=== PATIENT | female | born 1990 | race Caucasian/White ===

== ENCOUNTER 2016-12-13 14:47 | Emergency (ER) | payer OTHER ==
[2016-12-13] MEDS ORDERED: SODIUM CHLORIDE 0.9% 1,000 ML IV ONE (15:07)
[2016-12-13] MEDS ORDERED: KETOROLAC 30 MG/ML 1 ML VIAL IVP STA (15:07)
[2016-12-13] MEDS ORDERED: HYDROmorphone 1 MG/ML 1 ML SYRINGE IVP STA (15:07)
[2016-12-13] MEDS ORDERED: ONDANSETRON 4 MG/2 ML VIAL IVP STA (15:07)
--- NOTE | 2016-12-13 15:15 | ED ---
Abdominal Pain HPI - General Chief Complaint: Abdominal Pain Stated Complaint: Abd Pain Time Seen by Provider: 12/13/16 14:53 Source: patient, RN notes reviewed Mode of arrival: ambulatory Limitations: no limitations - History of Present Illness Initial Comments: Patient is a 26-year-old female presents to the emergency room for evaluation of right flank pain. Patient states the pain began about 45 minutes ago. Patient does state she has a history of kidney stones. Patient states this feels like a kidney stone. Patient states she feels like she can't urinate as much. Patient denies any pain or burning during urination or blood in urine. Patient states having 10 out of 10 pain in her right flank area that radiates to her right abdomen. Patient states she is nauseous but denies any vomiting yet. Patient denies headache or dizziness. Patient denies any fevers or chills. Patient denies constipation or diarrhea. Patient states her last menstrual period was in September. Patient does state she had a serum beta-hCG drawn on Thursday and it was negative. Patient denies any chest pain or shortness of breath. Patient denies any recent injuries or trauma to her back/ flank area. - Related Data Previous Rx's Medication Instructions Recorded HYDROcodone/APAP 5-325MG [[place] 1 tab PO Q4HR PRN #15 tab 12/13/16 5-325] Ibuprofen [Motrin] 600 mg PO Q6HR PRN #20 tab 12/13/16 Ondansetron Odt [Zofran Odt] 4 mg PO Q8HR PRN #12 tab 12/13/16 Tamsulosin HCl [Flomax] 0.4 mg PO DAILY 10 Days 12/13/16 Allergies Allergy/AdvReac Type Severity Reaction Status Date / Time doxycycline AdvReac Rash/Hives Verified 12/13/16 15:29 sumatriptan [From Imitrex] AdvReac Unknown Verified 12/13/16 15:29 Review of Systems ROS Statement: Those systems with pertinent positive or pertinent negative responses have been documented in the HPI. ROS Other: All systems not noted in ROS Statement are negative. Past Medical History Additional Past Medical History / Comment(s): KIDNEY STONES History of Any Multi-Drug Resistant Organisms: None Reported Past Surgical History: Cholecystectomy Additional Past Surgical History / Comment(s): D AND C Past Psychological History: No Psychological Hx Reported Smoking Status: Never smoker Past Alcohol Use History: None Reported Past Drug Use History: None Reported General Exam - General Exam Comments Initial Comments: Sitting in exam room, appears uncomfortable secondary to pain, no acute distress. Limitations: no limitations General appearance: alert, in no apparent distress Head exam: Present: atraumatic, normocephalic, normal inspection Eye exam: Present: normal appearance ENT exam: Present: normal exam Neck exam: Present: normal inspection Respiratory exam: Present: normal lung sounds bilaterally. Absent: respiratory distress Cardiovascular Exam: Present: regular rate, normal rhythm, normal heart sounds GI/Abdominal exam: Present: soft, tenderness (RLQ), normal bowel sounds. Absent : distended, guarding, rebound, rigid Extremities exam: Present: normal inspection Back exam: Present: normal inspection, CVA tenderness (R). Absent: CVA tenderness (L), paraspinal tenderness, vertebral tenderness Neurological exam: Present: alert, oriented X3, CN II-XII intact, normal gait Psychiatric exam: Present: normal affect, normal mood Skin exam: Present: warm, dry, intact, normal color. Absent: rash Course Vital Signs 12/13/16 12/13/16 12/13/16 14:49 15:31 16:00 Temperature 99.1 F 98.4 F Pulse Rate 84 66 Respiratory 20 20 16 Rate Blood Pressure 133/93 122/72 O2 Sat by Pulse 99 96 Oximetry - Reevaluation(s) Reevaluation #1: 12/13/16 16:26 Urinalysis significant for hematuria. No signs of infection noted. Patient also likely passing a kidney stone. Patient states symptoms are similar to passing kidney stone in the past. Patient states pain has improved but she still nauseous. Will add on more antinausea medication and see if symptoms improve. Medical Decision Making - Medical Decision Making Patient is a 26-year-old female presents to the emergency room for evaluation of right flank pain. Urine significant for hematuria. Patient most likely passing a kidney stone, especially since patient states this feels similar to passing a kidney stone. Patient states she is feeling better after medications given. Patient states she is ready to be discharged home. Will send patient home medications and advised her to follow-up with urologist on Thursday. Advised patient to return for any worsening symptoms. Patient states she understands everything that was discussed with her. Return parameters discussed. case discussed with Dr. Zaidi. - Lab Data Result diagrams: 12/13/16 15:10 12/13/16 15:10 Lab Results 12/13/16 12/13/16 12/13/16 Range/Units 15:10 15:10 15:10 WBC 11.5 H (3.8-10.6) k/uL RBC 5.13 (3.80-5.40) m/uL Hgb 14.9 (11.4-16.0) gm/dL Hct 43.7 (34.0-46.0) % MCV 85.2 (80.0-100.0) fL MCH 29.0 (25.0-35.0) pg MCHC 34.1 (31.0-37.0) g/dL RDW 12.4 (11.5-15.5) % Plt Count 303 (150-450) k/uL Neutrophils % 66 % Lymphocytes % 23 % Monocytes % 5 % Eosinophils % 4 % Basophils % 1 % Neutrophils # 7.6 (1.3-7.7) k/uL Lymphocytes # 2.6 (1.0-4.8) k/uL Monocytes # 0.6 (0-1.0) k/uL Eosinophils # 0.4 (0-0.7) k/uL Basophils # 0.1 (0-0.2) k/uL Sodium 143 (137-145) mmol/L Potassium 4.3 (3.5-5.1) mmol/L Chloride 108 H (98-107) mmol/L Carbon Dioxide 23 (22-30) mmol/L Anion Gap 12 mmol/L BUN 14 (7-17) mg/dL Creatinine 0.73 (0.52-1.04) mg/dL Est GFR (MDRD) Af Amer >60 (>60 ml/min/1.73 sqM) Est GFR (MDRD) Non-Af >60 (>60 ml/min/1.73 sqM) Glucose 103 H (74-99) mg/dL Calcium 9.9 (8.4-10.2) mg/dL Total Bilirubin 0.4 (0.2-1.3) mg/dL AST 26 (14-36) U/L ALT 43 (9-52) U/L Alkaline Phosphatase 82 (38-126) U/L Total Protein 7.8 (6.3-8.2) g/dL Albumin 4.5 (3.5-5.0) g/dL Urine Color Urine Appearance (Clear) Urine pH (5.0-8.0) Ur Specific [place] (1.001-1.035) Urine Protein (Negative) Urine Glucose (UA) (Negative) Urine Ketones (Negative) Urine Blood (Negative) Urine Nitrate (Negative) Urine Bilirubin (Negative) Urine Urobilinogen (<2.0) mg/dL Ur Leukocyte Esterase (Negative) Urine RBC (0-5) /hpf Urine WBC (0-5) /hpf Ur Squamous Epith Cells (0-4) /hpf Urine Mucus (None) /hpf Urine HCG, Qual Not Detected (Not Detectd) 12/13/16 Range/Units 15:10 WBC (3.8-10.6) k/uL RBC (3.80-5.40) m/uL Hgb (11.4-16.0) gm/dL Hct (34.0-46.0) % MCV (80.0-100.0) fL MCH (25.0-35.0) pg MCHC (31.0-37.0) g/dL RDW (11.5-15.5) % Plt Count (150-450) k/uL Neutrophils % % Lymphocytes % % Monocytes % % Eosinophils % % Basophils % % Neutrophils # (1.3-7.7) k/uL Lymphocytes # (1.0-4.8) k/uL Monocytes # (0-1.0) k/uL Eosinophils # (0-0.7) k/uL Basophils # (0-0.2) k/uL Sodium (137-145) mmol/L Potassium (3.5-5.1) mmol/L Chloride (98-107) mmol/L Carbon Dioxide (22-30) mmol/L Anion Gap mmol/L BUN (7-17) mg/dL Creatinine (0.52-1.04) mg/dL Est GFR (MDRD) Af Amer (>60 ml/min/1.73 sqM) Est GFR (MDRD) Non-Af (>60 ml/min/1.73 sqM) Glucose (74-99) mg/dL Calcium (8.4-10.2) mg/dL Total Bilirubin (0.2-1.3) mg/dL AST (14-36) U/L ALT (9-52) U/L Alkaline Phosphatase (38-126) U/L Total Protein (6.3-8.2) g/dL Albumin (3.5-5.0) g/dL Urine Color Yellow Urine Appearance Cloudy H (Clear) Urine pH 5.5 (5.0-8.0) Ur Specific [place] 1.018 (1.001-1.035) Urine Protein Negative (Negative) Urine Glucose (UA) Negative (Negative) Urine Ketones Negative (Negative) Urine Blood Large H (Negative) Urine Nitrate Negative (Negative) Urine Bilirubin Negative (Negative) Urine Urobilinogen <2.0 (<2.0) mg/dL Ur Leukocyte Esterase Negative (Negative) Urine RBC >182 H (0-5) /hpf Urine WBC 2 (0-5) /hpf Ur Squamous Epith Cells 12 H (0-4) /hpf Urine Mucus Rare H (None) /hpf Urine HCG, Qual (Not Detectd) - Radiology Data Radiology results: report reviewed, image reviewed Disposition Clinical Impression: Flank pain, Hematuria Disposition: HOME SELF-CARE Condition: Good Instructions: Kidney Stones (ED) Additional Instructions: Take medications as directed. Drink plenty of water. Please follow up with urologist on Thursday for reevaluation. If any new symptom arises, symptoms worsen or fever develops, return to ER as soon as possible. Prescriptions: HYDROcodone/APAP 5-325MG [[place] 5-325] 1 tab PO Q4HR PRN #15 tab PRN Reason: Pain Ibuprofen [Motrin] 600 mg PO Q6HR PRN #20 tab PRN Reason: Pain Ondansetron Odt [Zofran Odt] 4 mg PO Q8HR PRN #12 tab PRN Reason: Nausea Tamsulosin HCl [Flomax] 0.4 mg PO DAILY 10 Days Referrals: Rogelio Yang MD [Primary Care Provider] - 1-2 days Phill Austin MD [STAFF PHYSICIAN] - 1-2 days Time of Disposition: 18:20
[2016-12-13 15:24] LABS: Basophils # (A) 0.1 k/uL (0-0.2); Basophils % (A) 1 %; CH 29.4; CHCM 34.7; Eosinophils # (A) 0.4 k/uL (0-0.7); Eosinophils % (A) 4 %; HCT 43.7 % (34.0-46.0); HDW 2.57; HGB 14.9 gm/dL (11.4-16.0); Luc # (Auto) 0.17; Luc % (Auto) 2; Lymphocytes # (A) 2.6 k/uL (1.0-4.8); Lymphocytes % (A) 23 %; MCHC 34.1 g/dL (31.0-37.0); MCV 85.2 fL (80.0-100.0); Mean Platelet Volume 7.4; Monocytes # (A) 0.6 k/uL (0-1.0); Monocytes % (A) 5 %; Neutrophils # (A) 7.6 k/uL (1.3-7.7); Neutrophils % (A) 66 %; RBC 5.13 m/uL (3.80-5.40); RDW 12.4 % (11.5-15.5); WBC 11.5 k/uL (3.8-10.6); WBC (Perox) 11.86
[2016-12-13 15:31] LABS: Appearance,Urine Cloudy (Clear); Bilirubin,Urine Negative (Negative); Glucose,Urine (UA) Negative (Negative); Ketones,Urine Negative (Negative); Leukocyte Esterase,Urine Negative (Negative); Mucus,Urine Rare /hpf; Nitrite,Urine Negative (Negative); PH, Urine 5.5 (5.0-8.0); Particle Count 4522; Protein,Urine Negative (Negative); RBC,Urine >182 /hpf (0-5); Specific Gravity,Urine 1.018 (1.001-1.035); Squamous Epithelial Cell,Urine 12 /hpf (0-4); UA Billing (MACRO vs. MICRO) MICRO; Urobilinogen,Urine <2.0 mg/dL (<2.0); WBC,Urine 2 /hpf (0-5)
[2016-12-13 15:33] LABS: ALT 43 U/L (9-52); AST 26 U/L (14-36); Alkaline Phosphatase 82 U/L (38-126); Anion Gap 12 mmol/L; Blood Urea Nitrogen 14 mg/dL (7-17); Calcium 9.9 mg/dL (8.4-10.2); Carbon Dioxide 23 mmol/L (22-30); Chloride 108 mmol/L (98-107); Glucose 103 mg/dL (74-99); Non-African American GFR(MDRD) >60 (>60 ml/min/1.73 sqM); Potassium 4.3 mmol/L (3.5-5.1); Sodium 143 mmol/L (137-145); Total Bilirubin 0.4 mg/dL (0.2-1.3); Total Protein 7.8 g/dL (6.3-8.2)
--- NOTE | 2016-12-13 16:13 | XR ---
EXAMINATION TYPE: XR KUB DATE OF EXAM: 12/13/2016 3:55 PM COMPARISON: 06/21/2014 HISTORY: 26-year-old female right-sided abdominal pain today FINDINGS: No evidence for free intraperitoneal air. Cholecystectomy clips are present. No dilated small bowel or air-fluid levels. Scattered mild stool burden. There is rotary levoconvex scoliosis of the lumbar spine. IMPRESSION: 1. Mild stool burden. No evidence for free air or bowel obstruction. 2. Scoliosis of the lumbar spine.
[2016-12-13] MEDS ORDERED: TAMSULOSIN 0.4 MG CAP.ER.24H PO STA (16:23)
[2016-12-13] MEDS ORDERED: METOCLOPRAMIDE 5 MG/ML 2 ML VIAL IVP STA (16:23)
[2016-12-13 16:28] VITALS: BP 122/72
[2016-12-13] MEDS ORDERED: PROMETHAZINE INJ 12.5 MG in SODIUM CHLORIDE 0.9% 50 ML IVPB STA (17:03)
[2016-12-13 18:55] VITALS: PULSE 63; RESP 18; TEMP 98.2
== END 2016-12-13 18:50 | disposition home or self-care (01) ==
LOC: EC 14:47
DX: R10.9 Unspecified abdominal pain (principal); R31.9 Hematuria, unspecified; R11.0 Nausea; Z87.442 Personal history of urinary calculi
CPT/HCPCS: 36415; 80053; 85025; 81001; 81025; 74000; 99284; 96374; 96375 ×5; 96361; J2550; J2765; J2405; J1885; J1170

== ENCOUNTER → 2017-06-30 | Outpatient (CLI) | payer BC ==
--- NOTE | 2017-06-30 15:44 | US ---
EXAMINATION TYPE: US pelvis complete transvag DATE OF EXAM: 06/30/2017 COMPARISON: NONE CLINICAL HISTORY: Excessive Frequent Menstration N92.1. Pt states heavy menses TECHNIQUE: Transvaginal (TV) and Transabdominal (TA) Date of LMP: 06/17/2017 EXAM MEASUREMENTS: Uterus: 8.3 x 3.8 x 4.3 cm Endometrial Stripe: 0.8 cm Right Ovary: 3.0 x 3.0 x 2.6 cm Left Ovary: 3.1 x 2.1 x 2.4 cm 1. Uterus: Anteverted Heterogeneous 2. Endometrium: wnl 3. Right Ovary: "String of Pearls" appearance 4. Left Ovary: String of Pearls" appearance 5. Bilateral Adnexa: wnl 6. Posterior cul-de-sac: wnl Ovaries polycystic in appearance, otherwise unremarkable pelvis IMPRESSION: 1. Clinical consideration for polycystic ovarian disease is recommended. 2. Pelvic ultrasound is otherwise unremarkable.
== END | disposition home or self-care (01) ==
LOC: RADUSWWP 15:06
PROVIDERS: ATTEND Family Medicine
DX: N92.1 Excessive and frequent menstruation with irregular cycle (principal); R42 Dizziness and giddiness
CPT/HCPCS: 76830; 76856

== ENCOUNTER 2017-07-14 00:45 | Inpatient (IN) | payer BC ==
--- NOTE | 2017-07-14 00:53 | ED ---
General Adult HPI - General Stated complaint: MENTAL HEALTH Time Seen by Provider: 07/14/17 00:48 Source: patient, RN notes reviewed Mode of arrival: EMS Limitations: no limitations - History of Present Illness Initial comments: Patient is a pleasant 27-year-old female presenting to the emergency department with depression. Patient states symptoms have been present for a long time over worse with the past several days. Patient does have suicidal thoughts without specific plan. No homicidal thoughts. Patient does have a history of self-harm in the distant past. No hallucinations. No alcohol or street drug use. No physical complaints. - Related Data Previous Rx's Medication Instructions Recorded HYDROcodone/APAP 5-325MG [[place] 1 tab PO Q4HR PRN #15 tab 12/13/16 5-325] Ibuprofen [Motrin] 600 mg PO Q6HR PRN #20 tab 12/13/16 Ondansetron Odt [Zofran Odt] 4 mg PO Q8HR PRN #12 tab 12/13/16 Tamsulosin HCl [Flomax] 0.4 mg PO DAILY 10 Days 12/13/16 Allergies Allergy/AdvReac Type Severity Reaction Status Date / Time doxycycline AdvReac Rash/Hives Verified 12/13/16 15:29 sumatriptan [From Imitrex] AdvReac Unknown Verified 12/13/16 15:29 Review of Systems ROS Statement: Those systems with pertinent positive or pertinent negative responses have been documented in the HPI. ROS Other: All systems not noted in ROS Statement are negative. Constitutional: Denies: fever Eyes: Denies: eye pain ENT: Denies: ear pain Respiratory: Denies: cough Cardiovascular: Denies: palpitations Endocrine: Denies: fatigue Gastrointestinal: Denies: abdominal pain Genitourinary: Denies: urgency Musculoskeletal: Denies: back pain Skin: Denies: rash Neurological: Denies: weakness Psychiatric: Reports: depression, suicidal thoughts Past Medical History Additional Past Medical History / Comment(s): KIDNEY STONES History of Any Multi-Drug Resistant Organisms: None Reported Past Surgical History: Cholecystectomy Additional Past Surgical History / Comment(s): D AND C Past Psychological History: No Psychological Hx Reported Smoking Status: Never smoker Past Alcohol Use History: None Reported Past Drug Use History: None Reported General Exam Limitations: no limitations General appearance: alert, in no apparent distress Head exam: Present: atraumatic Eye exam: Present: normal appearance, PERRL ENT exam: Present: normal oropharynx Neck exam: Present: normal inspection Respiratory exam: Present: normal lung sounds bilaterally Cardiovascular Exam: Present: regular rate, normal rhythm GI/Abdominal exam: Present: soft. Absent: tenderness Extremities exam: Present: normal inspection Neurological exam: Present: alert Psychiatric exam: Present: flat affect Skin exam: Present: normal color Course Vital Signs 07/14/17 00:46 Temperature 97.9 F Pulse Rate 81 Respiratory 18 Rate Blood Pressure 111/59 O2 Sat by Pulse 98 Oximetry Medical Decision Making - Medical Decision Making Patient was seen by mental health services, who will admit. - Lab Data Lab Results 07/14/17 Range/Units 01:05 Urine Opiates Screen Not Detected (NotDetected) Ur Oxycodone Screen Not Detected (NotDetected) Urine Methadone Screen Not Detected (NotDetected) Ur Propoxyphene Screen Not Detected (NotDetected) Ur Barbiturates Screen Not Detected (NotDetected) U Tricyclic Antidepress Not Detected (NotDetected) Ur Phencyclidine Scrn Not Detected (NotDetected) Ur Amphetamines Screen Not Detected (NotDetected) U Methamphetamines Scrn Not Detected (NotDetected) U Benzodiazepines Scrn Not Detected (NotDetected) Urine Cocaine Screen Not Detected (NotDetected) U Marijuana (THC) Screen Not Detected (NotDetected) Disposition Clinical Impression: Depression Disposition: TRANSFER TO PSYCH HOSP/UNIT Decision Time: 02:57
[2017-07-14] MEDS ORDERED: MAGNESIUM HYDROXIDE 2,400 MG/10 ML CUP PO PRN (03:22)
[2017-07-14] MEDS ORDERED: ACETAMINOPHEN TAB 325 MG TAB PO PRN (03:22)
[2017-07-14] MEDS ORDERED: MAG HYDROX/AL HYDROX/SIMETH 30 ML CUP PO PRN (03:22)
[2017-07-14 06:31] VITALS: BMI 39.6
[2017-07-14] MEDS: LORazepam 1 MG TAB PO PRN ×2 (10:49→21:47)
[2017-07-14] MEDS ORDERED: ONDANSETRON 4 MG TAB PO PRN (11:39)
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
[2017-07-14] MEDS ORDERED: BUTALB/APAP/CAFF 50-325-40MG TAB PO PRN (13:13)
--- NOTE | 2017-07-14 14:01 | P.MDCNMH ---
History of Present Illness H&P Date: 07/14/17 Chief Complaint: migraine headaches, depression and suicidal ideation 27-year-old female with past medical history of migraines. Patient presented with a complaint of suicidal ideation where she was planning on cutting herself using the scalpel due to severe depression. Patient reports no previous history of suicidal ideation however she feels that life stressors has became overwhelming recently and that she had the breaking point made her feel sad and tearful on a daily basis. She otherwise denies any history of mental illnesses in the past except for anxiety. She also reports history long history of migraines and currently having an acute attack that started overnight and its typical of her previous attacks with pain 5 out of 10 in severity sharp on the right side of her head around her eyes and extending to the back over the occipital region not associated with any photophobia or vision changes or hearing changes however she was nauseated earlier and vomited once she she could not comment on any bloody contents or coffee-ground vomiting. Currently denies any associated focal neurologic deficits. She normally takes Excedrin that would abort the pain. Review of Systems Constitutional: Patient reports no fever, no chills, no night sweating. She reports subjective weight loss Eyes: Patient reports no visual changes, no eye pain ENT: Patient reports no ear pain, no rhinorrhea, no sore throat Cardiovascular: Patient reports no chest pain, no exertional dyspnea, no peripheral leg edema, no orthopnea, no paroxysmal nocturnal dyspnea Respiratory:Patient reports no cough, no wheezing, no shortness of breath Gastrointestinal: Patient reports no diarrhea, no constipation, no nausea no vomiting, no abdominal pain Genitourinary: Patient reports no dysuria, no hematuria, no changes in urinary habits, no genital lesions. She reports heavy irregular menses Musculoskeletal: Patient reports no muscle pain, no joint pain Psychiatric: Patient reports depressed mood, feeling hopeless and helpless, suicidal ideation. Endocrine: Patient reports no heat intolerance, no cold intolerance, no excessive thirst, no polyuria Neurological: Patient reports no focal neurologic deficits, no weakness, no numbness, no tingling Hem/Lymphatic: Patient reports no bleeding tendency, no bruising, no swollen lymph glands Allergic/Immun: Patient reports no recent allergic reactions Skin: Patient reports no rashes, no pruritis, no ulcers Past Medical History Additional Past Medical History / Comment(s): KIDNEY STONES. migraine headache. PCOS. heavy menses History of Any Multi-Drug Resistant Organisms: None Reported Past Surgical History: Cholecystectomy Additional Past Surgical History / Comment(s): D AND C due to ectopic tubal Past Psychological History: No Psychological Hx Reported, Anxiety Smoking Status: Never smoker Past Alcohol Use History: Occasional Additional Past Alcohol Use History / Comment(s): 1-2 drinks at a time, once or twice a month Past Drug Use History: Marijuana Additional History: , with one kid (daughter), financial and social struggles. - Past Family History father Additional Family Medical History / Comment(s): drug abuse, and of massive heart attack thought to be related to drug overdose mother Additional Family Medical History / Comment(s): bipolar disorder Medications and Allergies Home Medications and Allergies Comment(s): allergic to bees, has epi pen at home claritin tylenol Home Medications Medication Instructions Recorded Confirmed Type EPINEPHrine [Epipen 2-Manny] 0.3 mg IM ONCE PRN 07/14/17 07/14/17 History Allergies Allergy/AdvReac Type Severity Reaction Status Date / Time doxycycline AdvReac Rash/Hives Verified 07/14/17 03:11 sumatriptan [From Imitrex] AdvReac Unknown Verified 07/14/17 03:11 Physical Exam Vitals: Vital Signs Temp Pulse Pulse Pulse Resp BP BP 07/14/17 10:47 80 18 07/14/17 06:53 97.7 F 52 L 16 123/68 07/14/17 06:17 98.1 F 74 16 118/81 07/14/17 03:14 97.3 F L 80 16 115/68 07/14/17 00:46 97.9 F 81 18 111/59 BP Pulse Ox 07/14/17 10:47 136/81 07/14/17 06:53 07/14/17 06:17 07/14/17 03:14 98 07/14/17 00:46 98 Intake and Output 07/13/17 07/14/17 07/14/17 22:59 06:59 14:59 Other: Weight 108 kg Constitutional: Not in acute distress, conversant, vital signs stable Eyes: Pupils equal round reactive to light, anicteric sclerae, moist conjunctivae ENMT: Normocephalic, atraumatic, oropharynx clear, no erythema/exudate Neck: Supple, FORM, no palpable thyromegally Lymphatics: no palpable cervical or supraclavicular lymph nodes Respiratory: Clear to auscultation bilaterally, no wheezes, no crackles, no rhonchi, clear to percussion, normal respiratory effort without use of accessory muscles Cardiovascular: Regular rate and rhythm, no murmurs, no gallops, no rubs, no peripheral edema , no JVD, no carotid bruits, peripheral pulses palpable and equal over bilateral radial arteries and dorsalis pedis arteries Abdomen: Bowel sounds positive, soft, no tenderness to palpation, no palpable masses, no palpable hepatosplenomegally, no abdominal wall hernias , obese limiting exam Skin: Unremarkable temperature, tone, texture, and turgor, no indur or subcutaneous nodule, no rashes, no lesions, no ulcers Extremities: No digital cyanosis, ischemia or clubbing, no calf muscle tenderness bilaterally, gait unremarkable, full grossly intact active range of motion of both upper and lower extremities Psych: Alert, oriented to place, person and date, recent and remote memory intact, depressed mood and flat affect, poor judgment Neurologic: no focal sensory deficits to touch, Deep tendon reflexes unremarkable over bilateral knees Cranial Nerve Examination - Cranial Nerves Cranial Nerve II- Optic: Intact Cranial Nerve III- Oculomotor: Intact Cranial Nerve IV- Trochlear: Intact Cranial Nerve V- Trigeminal: Intact Cranial Nerve - Abducens: Intact Cranial Nerve VII- Facial: Intact Cranial Nerve VIII- Auditory: Intact Cranial Nerve IX- Glossopharyngeal: Intact Cranial Nerve X- Vagus: Intact Cranial Nerve XI- Accessory: Intact Cranial Nerve XII- Hypoglossal: Intact Results Results: labs reviewed, urine drug screen negative, BHCG negative, await other labs Assessment and Plan (1) Migraine headache with aura Narrative/Plan: patient is patient describes typical symptoms of her migraine headache Start fioricet when necessary Status: Acute (2) PCOS (polycystic ovarian syndrome) Narrative/Plan: OP follow up with OBGYN patient can benefit from adding metformin Status: Chronic (3) Suicidal ideation Narrative/Plan: management per psych Status: Acute (4) DVT prophylaxis Narrative/Plan: low risk and ambulatory Status: Acute (5) Depression Narrative/Plan: management per psych Status: Acute (6) Obesity (BMI 30-39.9) Narrative/Plan: life style modification and weight loss Status: Acute Time with Patient: Greater than 30
[2017-07-14 17:49] LABS: Appearance,Urine Clear (Clear); Bilirubin,Urine Negative (Negative); Glucose,Urine (UA) Negative (Negative); Ketones,Urine Negative (Negative); Leukocyte Esterase,Urine Negative (Negative); Nitrite,Urine Negative (Negative); PH, Urine 7.5 (5.0-8.0); Protein,Urine Negative (Negative); Specific Gravity,Urine 1.008 (1.001-1.035); UA Billing (MACRO vs. MICRO) CHEM; Urobilinogen,Urine <2.0 mg/dL (<2.0)
[2017-07-15] MEDS: ESCITALOPRAM 10 MG TAB PO SCH (09:17)
[2017-07-15 10:02] LABS: Basophils # (A) 0.1 k/uL (0-0.2); Basophils % (A) 1 %; Eosinophils # (A) 0.4 k/uL (0-0.7); Eosinophils % (A) 3 %; HDW 2.53; HGB 15.1 gm/dL (11.4-16.0); Luc # (Auto) 0.17; Luc % (Auto) 1; Lymphocytes % (A) 17 %; MCHC 32.9 g/dL (31.0-37.0); MCV 88.2 fL (80.0-100.0); Mean Platelet Volume 7.1; Monocytes # (A) 0.7 k/uL (0-1.0); Monocytes % (A) 6 %; Neutrophils # (A) 8.5 k/uL (1.3-7.7); Neutrophils % (A) 73 %; RBC 5.22 m/uL (3.80-5.40); RDW 12.6 % (11.5-15.5); WBC 11.8 k/uL (3.8-10.6); WBC (Perox) 12.18
[2017-07-15 10:13] LABS: ALT 54 U/L (9-52); AST 26 U/L (14-36); Alkaline Phosphatase 68 U/L (38-126); Anion Gap 12 mmol/L; Blood Urea Nitrogen 10 mg/dL (7-17); Calcium 9.7 mg/dL (8.4-10.2); Carbon Dioxide 22 mmol/L (22-30); Chloride 107 mmol/L (98-107); Glucose 89 mg/dL (74-99); Non-African American GFR(MDRD) >60 (>60 ml/min/1.73 sqM); Sodium 141 mmol/L (137-145); Total Bilirubin 0.7 mg/dL (0.2-1.3); Total Protein 7.5 g/dL (6.3-8.2)
[2017-07-15] MEDS: LORazepam 1 MG TAB PO PRN (21:04)
[2017-07-16 06:34] VITALS: TEMP 98.2
[2017-07-16] MEDS: ESCITALOPRAM 10 MG TAB PO SCH (08:25)
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
--- NOTE | 2017-07-16 09:29 | P.PN ---
Progress Note - Text Interval history: The patient is found in the front that she follows me to an interview room. She continues to report a depressed mood. She continues to have some hopelessness thinking. She states that she feels safe in the hospital and does not want to harm herself but suicidal thoughts keep appearing in her thoughts. She is concerned about the support meeting involving her today. She senses a significant amount of anger from him and apparently he describes her as being selfish. She describes having feelings of anxiety. She is encouraged to express those to staff especially in group and we discussed some strategies in terms of handling the anxiety rather than just medicating with Ativan. Mental status exam: The patient is an overweight female she is dressed in her own clothing she wears eyeglasses. Hygiene adequate. Speech is fluent spontaneous she is very soft-spoken. She describes a depressed and anxious mood she continues to have some hopelessness thinking she states there are still some suicidal thoughts but she feels safe here in the hospital. No report or evidence of psychosis she does not appear hypomanic or manic. She demonstrates no verbal or physical aggressiveness. Insight and judgment impaired. Affect is very bland with little expression. Plan: The patient will be continued on the Lexapro that has just recently been started. She is encouraged to continue participating fully in the milieu and working on coping skill development as it relates to her anxiety. Vital signs reviewed. We will continue to monitor her for safety. We will await the outcome of her support meeting involving her
[2017-07-16] MEDS ORDERED: ALBUTEROL NEBULIZED 2.5 MG/3 ML INHALATION PRN (14:27)
--- NOTE | 2017-07-16 14:32 | P.PN ---
Subjective Principal diagnosis: Shortness of breath Patient is a 27-year-old female past medical history of migraines, seasonal ALLERGIES, and mild persistent asthma who initially presented with suicidal ideation. We were asked to reevaluate her for shortness of breath. She states that she has allergy-induced asthma and prior to admission was taking [id number] Claritin and using a Ventolin inhaler as needed. She was using her Ventolin inhaler approximately 2-5 times weekly. She was on Flonase prior but had not had insurance so stopped this. Since admission she has had worsening shortness of breath associated with wheezing. It is worse with movement and better with rest. She complains of a nonproductive cough. She also complains of mild diarrhea. No nausea no vomiting no overt chest pain but does complain of chest tightness. She states that she gets so short of breath she feels dizzy. She complains of nasal congestion but denies postnasal drip and runny nose. Objective - Vital Signs Vital signs: Vital Signs Temp 98.2 F 07/16/17 06:33 Pulse 72 07/16/17 06:33 Resp 18 07/16/17 06:33 BP 101/55 07/16/17 06:33 Pulse Ox 98 07/14/17 03:14 - Exam General: non toxic, no distress, appears at stated age Derm: no rashes, no lesions Head: atraumatic, normocephalic, symmetric Eyes: EOMI, no lid lag, anicteric sclera ENT: no post nasal drip, no thrush Mouth: no lip lesion, mucus membranes moist Cardiovascular: S1S2 reg, no murmur, positive posterior tibial pulse bilateral Lungs: Decreased breath sounds bilaterally with faint wheezing, no rhonchi, no rales , no accessory muscle use Abdominal: soft, nontender to palpation, no guarding, no appreciable organomegaly Ext: no gross muscle atrophy, no edema, no contractures Neuro: CN II-XI grossly intact, no focal neuro deficits Psych: Alert, oriented, appropriate affect - Labs CBC & Chem 7: 07/15/17 09:20 07/15/17 09:20 Assessment and Plan (1) Acute asthma exacerbation Narrative/Plan: Pulmicort twice daily, albuterol nebulizer 4 times daily and as needed, will avoid systemic steroids as patient is currently struggling with anxiety, informed patient if no improvement within 24 hours please let nurse noted to repeat hospitalist group. Check chest x-ray. Status: Acute (2) Allergic rhinitis Narrative/Plan: Resume home Claritin, and Flonase Status: Acute (3) Migraine headache with aura Narrative/Plan: Continue as needed Fioricet Status: Acute (4) Suicidal ideation Narrative/Plan: Management as per mental health Status: Acute
[2017-07-16] MEDS: LORATADINE 10 MG TAB PO SCH (16:28)
[2017-07-16] MEDS: ALBUTEROL NEBULIZED 2.5 MG/3 ML INHALATION SCH ×2 (16:28→21:35)
[2017-07-16] MEDS: FLUTICASONE 50MCG/SPRAY NASAL 16GM EA NOSTRIL SCH (16:28)
--- NOTE | 2017-07-16 16:29 | XR ---
EXAMINATION TYPE: XR chest 2V DATE OF EXAM: 07/16/2017 COMPARISON: NONE HISTORY: Shortness of breath TECHNIQUE: Frontal and lateral views of the chest are obtained. FINDINGS: There is no focal air space opacity, pleural effusion, or pneumothorax seen. The cardiac silhouette size is within normal limits. The osseous structures are intact. IMPRESSION: No acute cardiopulmonary process.
[2017-07-16] MEDS: LORazepam 1 MG TAB PO PRN (21:02)
[2017-07-16] MEDS: BUDESONIDE 1 MG/2 ML NEBU INHALATION SCH (21:34)
[2017-07-17 07:04] VITALS: BP 102/57; RESP 14
[2017-07-17] MEDS: BUDESONIDE 1 MG/2 ML NEBU INHALATION SCH (08:21)
[2017-07-17] MEDS: ALBUTEROL NEBULIZED 2.5 MG/3 ML INHALATION SCH ×2 (08:21→12:34)
[2017-07-17] MEDS: ESCITALOPRAM 10 MG TAB PO SCH (09:11)
[2017-07-17] MEDS: LORATADINE 10 MG TAB PO SCH (09:11)
[2017-07-17] MEDS: FLUTICASONE 50MCG/SPRAY NASAL 16GM EA NOSTRIL SCH (09:11)
--- NOTE | 2017-07-17 09:19 | P.PN ---
Subjective Principal diagnosis: Shortness of breath Patient is a 27-year-old female past medical history of migraines, seasonal ALLERGIES, and mild persistent asthma who initially presented with suicidal ideation. We were asked to reevaluate her for shortness of breath. She states that she has allergy-induced asthma and prior to admission was taking [id number] Claritin and using a Ventolin inhaler as needed. Breathing is much improved, able to ambulate without difficulty. Wheezing improved. Cough unchanged. Objective - Vital Signs Vital signs: Vital Signs Temp 98.2 F 07/17/17 07:03 Pulse 80 07/17/17 08:34 Resp 14 07/17/17 07:03 BP 102/57 07/17/17 07:03 Pulse Ox 98 07/17/17 07:03 - Exam General: non toxic, no distress, appears at stated age Derm: no rashes, no lesions Head: atraumatic, normocephalic, symmetric Eyes: EOMI, no lid lag, anicteric sclera ENT: no post nasal drip, no thrush Mouth: no lip lesion, mucus membranes moist Cardiovascular: S1S2 reg, no murmur, positive posterior tibial pulse bilateral Lungs: Decreased breath sounds bilaterally, no rhonchi, no rales ,no wheeze, no accessory muscle use Abdominal: soft, nontender to palpation, no guarding, no appreciable organomegaly Ext: no gross muscle atrophy, no edema, no contractures Neuro: CN II-XI grossly intact, no focal neuro deficits Psych: Alert, oriented, appropriate affect - Labs CBC & Chem 7: 07/15/17 09:20 07/15/17 09:20 Assessment and Plan (1) Acute asthma exacerbation Narrative/Plan: albuterol nebulizer 4 times daily for 1 week and as needed rx written for nebulizer and albuterol. Will avoid systemic steroids as patient is currently struggling with anxiety, CXR with no acute process. Status: Acute (2) Allergic rhinitis Narrative/Plan: Claritin and Flonase Status: Acute (3) Migraine headache with aura Narrative/Plan: Continue as needed Fioricet Status: Acute (4) Suicidal ideation Narrative/Plan: Management as per mental health Status: Acute
[2017-07-17] MEDS ORDERED: hydrOXYzine PAMOATE 25 MG CAP PO PRN (09:25)
--- NOTE | 2017-07-17 09:37 | P.DS ---
Providers Date of admission: 07/14/17 02:55 Expected date of discharge: 07/17/17 Attending physician: Buddy Ryan Consults: 07/14/17 03:22 Consult Physician Routine Consulting Provider: Ruiz Gallegos Consult Reason/Comments: h and p, eval and tx, r/o metabolic disorder Do you want consulting provider notified?: Yes, Notify in am Primary care physician: Rogelio Yang - Discharge Diagnosis(es) (1) Major depressive disorder Current Visit: Yes Status: Acute Priority: High Hospital Course: Brief summary of admission note: The patient is a 27-year-old female who was admitted to the mental health unit for suicidal ideation. She presented stating that she had "hit a breaking point". She reported symptoms of depression including tearfulness slow sleep low energy and decreased appetite. She reported having some hopeless thoughts. For full details please refer to my psychiatric evaluation dated 07/14/2017. Summary of hospital course: The patient was admitted to the mental health unit voluntarily. We reviewed her presenting symptoms and medication options and she was started on Lexapro 10 mg daily. She felt physically ill the first day she was here and did not attend groups but did begin attending group subsequently. She was seen by the preschool associate teacher for routine history and physical exam. She met with social work for a psychosocial assessment. Social work facilitated a family meeting involving her yesterday. The patient has reported a progressive improvement of symptoms while here. It's clear that she does have personality disorder traits influencing her mood as well. She felt that the family meeting was supportive and productive and off to the point where she felt safe again. She reports missing her daughter and realizes her daughter needs her. She is reporting no suicidal or homicidal ideation intent or plan. We discussed using Vistaril to help with anxiety prior to sleep as we were not going to prescribe Ativan upon discharge. Mental status exam: The patient is an overweight female appearing her stated age. Eye contact is good speech is fluent and spontaneous nonpressured. She speaking with a audible tone and not is quiet as before. She reports her mood is better. She states she feels safe. She is reporting no suicidal ideation intent or plan no homicidal ideation intent or plan. She denies having any thoughts of wanting to harm her daughter. She endorses no auditory or visual hallucinations or specific delusions there is no evidence of psychosis. She does not appear hypomanic or manic. Insight and judgment are improving. She demonstrates no verbal or physical aggressiveness. Affect is brighter and more appropriately expressive. She spontaneously reports future oriented thinking as she is hoping to engage in marital counseling with her . She is able to identify compromises her would like her to make and things she would like him to do to improve their marriage. Impressions 1. Major depressive disorder recurrent severe without psychosis, rule out generalized anxiety disorder, rule out history of PTSD 2. Cluster B traits 3. Polycystic ovarian syndrome, migraines 4. Psychosocial stressors include financial difficulties, interpersonal relationships including marital strain. Plan: The patient will be discharged to the mental health unit today to return home. She will continue on Lexapro 10 mg daily for depressive and anxiety symptoms. I will prescribe Vistaril 25 mg at bedtime as needed for anxiety. Social work will arrange the patient's outpatient mental health follow-up. She will follow up with her primary care physician as needed. There is no imminent safety risk she is appropriate for transition outpatient care. She is instructed to return to the hospital with any acute safety concerns. Patient Condition at Discharge: Stable Plan - Discharge Summary New Discharge Prescriptions: No Action EPINEPHrine [Epipen 2-Manny] 0.3 mg IM ONCE PRN PRN Reason: Anaphylaxis Discharge Medication List EPINEPHrine [Epipen 2-Manny] 0.3 mg IM ONCE PRN 07/14/17 [History] Follow up Appointment(s)/Referral(s): Jenifer Wall [Outside] - 07/20/17 10:00 am (Rogelio Vital MD [Primary Care Provider] - 1-2 days Care Plan Goals (MU): Prescription for nebulizer written for use with albuterol 4 times daily and as needed.
[2017-07-17 12:58] VITALS: PULSE 82
== END 2017-07-17 12:58 | disposition home or self-care (01) | DRG 885 ==
LOC: EC 00:45 → 3MHU 02:55
PROVIDERS: ADMIT Psychiatry & Neurology Psychiatry; ATTEND Psychiatry & Neurology Psychiatry
DX: F33.2 Major depressive disorder, recurrent severe without psychotic features (principal); R45.851 Suicidal ideations; J45.31 Mild persistent asthma with (acute) exacerbation; F43.10 Post-traumatic stress disorder, unspecified; F41.0 Panic disorder [episodic paroxysmal anxiety]; F41.1 Generalized anxiety disorder; F60.9 Personality disorder, unspecified; R63.4 Abnormal weight loss; G43.109 Migraine with aura, not intractable, without status migrainosus; E66.9 Obesity, unspecified; E28.2 Polycystic ovarian syndrome; G47.9 Sleep disorder, unspecified; R11.2 Nausea with vomiting, unspecified; R42 Dizziness and giddiness; R19.7 Diarrhea, unspecified; Z90.49 Acquired absence of other specified parts of digestive tract; Z88.1 Allergy status to other antibiotic agents; Z88.8 Allergy status to other drugs, medicaments and biological substances; Z62.810 Personal history of physical and sexual abuse in childhood; Z87.442 Personal history of urinary calculi; Z91.5 Personal history of self-harm; Z71.3 Dietary counseling and surveillance; Z87.42 Personal history of other diseases of the female genital tract; Z91.030 Bee allergy status; Z81.3 Family history of other psychoactive substance abuse and dependence; Z82.49 Family history of ischemic heart disease and other diseases of the circulatory system; Z81.8 Family history of other mental and behavioral disorders; Z79.899 Other long term (current) drug therapy; Z63.0 Problems in relationship with spouse or partner; Z63.79 Other stressful life events affecting family and household
CPT/HCPCS: 71020; 80053; 80306; 81003; 81025; 82075; 84443; 85025; 94640; 99285

== ENCOUNTER 2017-09-21 17:15 | Emergency (ER) | payer BC, OTHER ==
[2017-09-21] MEDS ORDERED: SODIUM CHLORIDE 0.9% 1,000 ML IV STA (18:43)
[2017-09-21] MEDS ORDERED: METOCLOPRAMIDE 5 MG/ML 2 ML VIAL IVP STA (18:43)
[2017-09-21] MEDS ORDERED: SODIUM CHLORIDE 0.9% 2,000 ML IV STA (18:43)
--- NOTE | 2017-09-21 18:48 | ED ---
General Adult HPI - General Chief complaint: Headache Stated complaint: poss dehydration, sent by Time Seen by Provider: 09/21/17 18:29 Source: patient, RN notes reviewed Mode of arrival: ambulatory Limitations: no limitations - History of Present Illness Initial comments: 27-year-old female presents for evaluation of nausea vomiting and diarrhea. Patient states she has had greater than 10 episodes of both diarrhea and vomiting over the past 24 hours. Patient also reports headache, back pain. Denies flank pain. Denies dysuria. Patient has had chills. No measured fever. No significant past medical history. Patient reports decreased urine production over the past 24 hours. Patient also reports right upper quadrant abdominal pain. Denies sore throat. Denies runny nose. - Related Data Home Medications Medication Instructions Recorded Confirmed Albuterol Inhaler [Ventolin Hfa 1 - 2 puff INHALATION RT-Q6H PRN 09/21/17 Inhaler] Albuterol Nebulized [Ventolin 2.5 mg INHALATION RT-QID PRN 09/21/17 09/21/17 Nebulized] Previous Rx's Medication Instructions Recorded Escitalopram [Lexapro] 10 mg PO DAILY #30 tab 07/17/17 Loratadine [Claritin] 10 mg PO DAILY tab 07/17/17 hydrOXYzine PAMOATE [Vistaril] 25 mg PO HS PRN #20 cap 07/17/17 Ibuprofen [Motrin] 600 mg PO Q8HR PRN #24 tab 09/21/17 Ondansetron Odt [Zofran Odt] 4 mg PO Q8HR PRN #10 tab 09/21/17 Allergies Allergy/AdvReac Type Severity Reaction Status Date / Time doxycycline AdvReac Rash/Hives Verified 09/21/17 19:22 sumatriptan [From Imitrex] AdvReac Unknown Verified 09/21/17 19:22 Review of Systems ROS Statement: Those systems with pertinent positive or pertinent negative responses have been documented in the HPI. ROS Other: All systems not noted in ROS Statement are negative. Past Medical History Additional Past Medical History / Comment(s): KIDNEY STONES. migraine headache. PCOS. heavy menses History of Any Multi-Drug Resistant Organisms: None Reported Past Surgical History: Cholecystectomy Additional Past Surgical History / Comment(s): D AND C due to ectopic tubal Past Psychological History: Anxiety Smoking Status: Never smoker Past Alcohol Use History: Occasional Past Drug Use History: Marijuana - Past Family History father Additional Family Medical History / Comment(s): drug abuse, and of massive heart attack thought to be related to drug overdose mother Additional Family Medical History / Comment(s): bipolar disorder General Exam Limitations: no limitations General appearance: alert, in no apparent distress Head exam: Present: atraumatic, normocephalic Eye exam: Present: normal appearance, PERRL. Absent: scleral icterus ENT exam: Present: mucous membranes dry Neck exam: Present: normal inspection. Absent: tenderness, meningismus Respiratory exam: Present: normal lung sounds bilaterally. Absent: respiratory distress Cardiovascular Exam: Present: normal rhythm, tachycardia GI/Abdominal exam: Present: soft, tenderness (Tender in the epigastrium and right upper quadrant). Absent: distended, guarding, rebound Extremities exam: Present: normal inspection, normal capillary refill. Absent: pedal edema Neurological exam: Present: alert, oriented X3 Psychiatric exam: Present: normal affect, normal mood Skin exam: Present: warm, dry, intact. Absent: cyanosis, diaphoretic Course Vital Signs 09/21/17 09/21/17 09/21/17 18:26 19:05 20:22 Temperature 100.2 F H 98.2 F Pulse Rate 131 H 103 H 77 Respiratory 20 18 16 Rate Blood Pressure 127/90 138/83 113/63 O2 Sat by Pulse 99 97 98 Oximetry Medical Decision Making - Medical Decision Making 27-year-old female with no significant past medical history presents with nausea vomiting diarrhea, myalgias, headache. Patient is initially tachycardic and febrile. She is given 2 L IV bolus as well as Tylenol Motrin. Laboratory studies reveal elevated white blood cell count 17.2, probably neutrophils, urinalysis is negative for signs of infection. All the laboratory studies are unremarkable. KUB is obtained, negative for extraction or intra-abdominal process. After fluid bolus and Tylenol Motrin, patient is feeling much better. Heart rate and temperature normalized. Patient does admit that several people at work have viral illness. She will continue to orally rehydrate. She has had no episodes of vomiting while in the emergency department. Diagnosis: Viral syndrome - Lab Data Result diagrams: 09/21/17 17:00 09/21/17 17:00 Lab Results 09/21/17 09/21/17 09/21/17 Range/Units 17:00 17:00 17:00 WBC 17.2 H (3.8-10.6) k/uL RBC 4.81 (3.80-5.40) m/uL Hgb 14.1 (11.4-16.0) gm/dL Hct 42.4 (34.0-46.0) % MCV 88.2 (80.0-100.0) fL MCH 29.3 (25.0-35.0) pg MCHC 33.2 (31.0-37.0) g/dL RDW 12.3 (11.5-15.5) % Plt Count 339 (150-450) k/uL Neutrophils % 82 % Lymphocytes % 9 % Monocytes % 7 % Eosinophils % 1 % Basophils % 0 % Neutrophils # 14.1 H (1.3-7.7) k/uL Lymphocytes # 1.6 (1.0-4.8) k/uL Monocytes # 1.1 H (0-1.0) k/uL Eosinophils # 0.1 (0-0.7) k/uL Basophils # 0.1 (0-0.2) k/uL Sodium 139 (137-145) mmol/L Potassium 3.6 (3.5-5.1) mmol/L Chloride 106 (98-107) mmol/L Carbon Dioxide 21 L (22-30) mmol/L Anion Gap 12 mmol/L BUN 11 (7-17) mg/dL Creatinine 0.70 (0.52-1.04) mg/dL Est GFR (MDRD) Af Amer >60 (>60 ml/min/1.73 sqM) Est GFR (MDRD) Non-Af >60 (>60 ml/min/1.73 sqM) Glucose 100 H (74-99) mg/dL Plasma Lactic Acid [place] (0.7-2.0) mmol/L Calcium 9.1 (8.4-10.2) mg/dL Total Bilirubin 0.8 (0.2-1.3) mg/dL AST 21 (14-36) U/L ALT 42 (9-52) U/L Alkaline Phosphatase 84 (38-126) U/L Total Protein 7.4 (6.3-8.2) g/dL Albumin 4.0 (3.5-5.0) g/dL Amylase <30 L (30-110) U/L Lipase 52 (23-300) U/L Urine Color Yellow Urine Appearance Cloudy H (Clear) Urine pH 6.0 (5.0-8.0) Ur Specific [place] 1.026 (1.001-1.035) Urine Protein 1+ H (Negative) Urine Glucose (UA) Negative (Negative) Urine Ketones Negative (Negative) Urine Blood Negative (Negative) Urine Nitrite Negative (Negative) Urine Bilirubin 1+ H (Negative) Urine Urobilinogen 3.0 (<2.0) mg/dL Ur Leukocyte Esterase Small H (Negative) Urine RBC 5 (0-5) /hpf Urine WBC 3 (0-5) /hpf Ur Squamous Epith Cells 19 H (0-4) /hpf Urine Mucus Few H (None) /hpf Urine HCG, Qual (Not Detectd) 09/21/17 09/21/17 Range/Units 17:00 17:00 WBC (3.8-10.6) k/uL RBC (3.80-5.40) m/uL Hgb (11.4-16.0) gm/dL Hct (34.0-46.0) % MCV (80.0-100.0) fL MCH (25.0-35.0) pg MCHC (31.0-37.0) g/dL RDW (11.5-15.5) % Plt Count (150-450) k/uL Neutrophils % % Lymphocytes % % Monocytes % % Eosinophils % % Basophils % % Neutrophils # (1.3-7.7) k/uL Lymphocytes # (1.0-4.8) k/uL Monocytes # (0-1.0) k/uL Eosinophils # (0-0.7) k/uL Basophils # (0-0.2) k/uL Sodium (137-145) mmol/L Potassium (3.5-5.1) mmol/L Chloride (98-107) mmol/L Carbon Dioxide (22-30) mmol/L Anion Gap mmol/L BUN (7-17) mg/dL Creatinine (0.52-1.04) mg/dL Est GFR (MDRD) Af Amer (>60 ml/min/1.73 sqM) Est GFR (MDRD) Non-Af (>60 ml/min/1.73 sqM) Glucose (74-99) mg/dL Plasma Lactic Acid [place] 1.0 (0.7-2.0) mmol/L Calcium (8.4-10.2) mg/dL Total Bilirubin (0.2-1.3) mg/dL AST (14-36) U/L ALT (9-52) U/L Alkaline Phosphatase (38-126) U/L Total Protein (6.3-8.2) g/dL Albumin (3.5-5.0) g/dL Amylase (30-110) U/L Lipase (23-300) U/L Urine Color Urine Appearance (Clear) Urine pH (5.0-8.0) Ur Specific [place] (1.001-1.035) Urine Protein (Negative) Urine Glucose (UA) (Negative) Urine Ketones (Negative) Urine Blood (Negative) Urine Nitrite (Negative) Urine Bilirubin (Negative) Urine Urobilinogen (<2.0) mg/dL Ur Leukocyte Esterase (Negative) Urine RBC (0-5) /hpf Urine WBC (0-5) /hpf Ur Squamous Epith Cells (0-4) /hpf Urine Mucus (None) /hpf Urine HCG, Qual Not Detected (Not Detectd) Disposition Clinical Impression: Viral syndrome Disposition: HOME SELF-CARE Condition: Good Instructions: Viral Syndrome (ED) Prescriptions: Ibuprofen [Motrin] 600 mg PO Q8HR PRN #24 tab PRN Reason: Pain Ondansetron Odt [Zofran Odt] 4 mg PO Q8HR PRN #10 tab PRN Reason: Vomiting Referrals: Rogelio Yang MD [Primary Care Provider] - 1-2 days Time of Disposition: 20:42
[2017-09-21] MEDS ORDERED: ACETAMINOPHEN IV (For NPO) 1,000 MG in EMPTY BAG 1 BAG IVPB ONE (19:00)
[2017-09-21 19:20] LABS: Basophils # (A) 0.1 k/uL (0-0.2); Basophils % (A) 0 %; CH 29.1; CHCM 33.2; Eosinophils # (A) 0.1 k/uL (0-0.7); Eosinophils % (A) 1 %; HCT 42.4 % (34.0-46.0); HDW 2.39; HGB 14.1 gm/dL (11.4-16.0); Luc # (Auto) 0.21; Luc % (Auto) 1; Lymphocytes # (A) 1.6 k/uL (1.0-4.8); Lymphocytes % (A) 9 %; MCH 29.3 pg (25.0-35.0); MCHC 33.2 g/dL (31.0-37.0); MCV 88.2 fL (80.0-100.0); Monocytes # (A) 1.1 k/uL (0-1.0); Monocytes % (A) 7 %; Neutrophils # (A) 14.1 k/uL (1.3-7.7); Neutrophils % (A) 82 %; RBC 4.81 m/uL (3.80-5.40); RDW 12.3 % (11.5-15.5); WBC 17.2 k/uL (3.8-10.6); WBC (Perox) 16.67
[2017-09-21 19:24] LABS: Appearance,Urine Cloudy (Clear); Bilirubin,Urine 1+ (Negative); Glucose,Urine (UA) Negative (Negative); Ketones,Urine Negative (Negative); Leukocyte Esterase,Urine Small (Negative); Mucus,Urine Few /hpf; Nitrite,Urine Negative (Negative); Particle Count 7270; Protein,Urine 1+ (Negative); RBC,Urine 5 /hpf (0-5); Specific Gravity,Urine 1.026 (1.001-1.035); Squamous Epithelial Cell,Urine 19 /hpf (0-4); UA Billing (MACRO vs. MICRO) MICRO; WBC,Urine 3 /hpf (0-5)
[2017-09-21 19:25] LABS: ALT 42 U/L (9-52); AST 21 U/L (14-36); Alkaline Phosphatase 84 U/L (38-126); Amylase <30 U/L (30-110); Anion Gap 12 mmol/L; Blood Urea Nitrogen 11 mg/dL (7-17); Calcium 9.1 mg/dL (8.4-10.2); Carbon Dioxide 21 mmol/L (22-30); Chloride 106 mmol/L (98-107); Glucose 100 mg/dL (74-99); Non-African American GFR(MDRD) >60 (>60 ml/min/1.73 sqM); Potassium 3.6 mmol/L (3.5-5.1); Sodium 139 mmol/L (137-145); Total Bilirubin 0.8 mg/dL (0.2-1.3); Total Protein 7.4 g/dL (6.3-8.2)
[2017-09-21] MEDS ORDERED: KETOROLAC 30 MG/ML 1 ML VIAL IVP STA (19:39)
--- NOTE | 2017-09-21 20:20 | XR ---
EXAMINATION TYPE: XR KUB DATE OF EXAM: 09/21/2017 COMPARISON: 12/13/2016 HISTORY: Abdominal pain TECHNIQUE: 2 views FINDINGS: There is no sign of intestinal obstruction or pneumoperitoneum. Fecal pattern is normal. Th ere are clips from cholecystectomy. There is no evidence of a mass. There are no pathologic calcifica tions over the kidneys. There is mild lumbar levoscoliosis. Lung bases appear clear. IMPRESSION: Nonacute abdomen. No change.
[2017-09-21 20:23] VITALS: RESP 16
[2017-09-21 21:02] VITALS: BP 113/61; PULSE 84; TEMP 98.5
== END 2017-09-21 21:01 | disposition home or self-care (01) ==
LOC: EC 17:15
DX: B34.9 Viral infection, unspecified (principal); D72.829 Elevated white blood cell count, unspecified; R00.0 Tachycardia, unspecified; Z88.1 Allergy status to other antibiotic agents; Z88.8 Allergy status to other drugs, medicaments and biological substances
CPT/HCPCS: 36415; 80053; 82150; 83605; 83690; 85025; 81001; 81025; 87040; 87086; 74000; 99283; 96374; 96375 ×2; 96361 ×2; J2765; J1885; J0131

== ENCOUNTER 2018-03-15 18:31 | Inpatient (IN) | payer BC ==
[2018-03-15] MEDS ORDERED: SODIUM CHLORIDE 0.9% 500 ML IV STA (19:34)
--- NOTE | 2018-03-15 19:43 | ED ---
General Adult HPI - General Chief complaint: Chest Pain Stated complaint: Chest pain Time Seen by Provider: 03/15/18 19:00 Source: patient, RN notes reviewed, old records reviewed Mode of arrival: wheelchair Limitations: no limitations - History of Present Illness Initial comments: This is a 27-year-old female to the ER for evaluation of multiple symptoms. Patient's complaining of left-sided facial numbness, tingling. Left arm facial numbness and tingling. Patient has history of PCO as, no history of DVT. Patient also on control. No history of smoking IV drug abuse. Patient also been a chest pain currently that certainly to hospital. One week of fatigue - Related Data Home Medications Medication Instructions Recorded Confirmed Albuterol Inhaler [Ventolin Hfa 1 - 2 puff INHALATION RT-Q6H PRN 09/21/17 Inhaler] Loratadine [Claritin] 10 mg PO DAILY PRN 03/15/18 03/15/18 Montelukast [Singulair] 10 mg PO DAILY PRN 03/15/18 03/15/18 Norgestimate-Ethinyl Estradiol 1 tab PO DAILY 03/15/18 03/15/18 [Ortho Tri-Cyclen Lo Tablet] Previous Rx's Medication Instructions Recorded Escitalopram [Lexapro] 10 mg PO DAILY #30 tab 07/17/17 Allergies Allergy/AdvReac Type Severity Reaction Status Date / Time doxycycline AdvReac Rash/Hives Verified 03/15/18 19:11 sumatriptan [From Imitrex] AdvReac Unknown Verified 03/15/18 19:11 Review of Systems ROS Statement: Those systems with pertinent positive or pertinent negative responses have been documented in the HPI. ROS Other: All systems not noted in ROS Statement are negative. Past Medical History Additional Past Medical History / Comment(s): KIDNEY STONES. migraine headache. PCOS. heavy menses History of Any Multi-Drug Resistant Organisms: None Reported Past Surgical History: Cholecystectomy Additional Past Surgical History / Comment(s): D AND C and left tube removed due to ectopic tubal Past Psychological History: Anxiety, Depression Smoking Status: Never smoker Past Alcohol Use History: Occasional Past Drug Use History: Marijuana - Past Family History father Additional Family Medical History / Comment(s): drug abuse, and of massive heart attack thought to be related to drug overdose mother Additional Family Medical History / Comment(s): bipolar disorder General Exam Limitations: no limitations General appearance: alert, in no apparent distress Head exam: Present: atraumatic, normocephalic, normal inspection Eye exam: Present: normal appearance, PERRL, EOMI. Absent: scleral icterus, conjunctival injection, periorbital swelling ENT exam: Present: normal exam, mucous membranes moist Neck exam: Present: normal inspection. Absent: tenderness, meningismus, lymphadenopathy Respiratory exam: Present: normal lung sounds bilaterally. Absent: respiratory distress, wheezes, rales, rhonchi, stridor Cardiovascular Exam: Present: regular rate, normal rhythm, normal heart sounds. Absent: systolic murmur, diastolic murmur, rubs, gallop, clicks GI/Abdominal exam: Present: soft, normal bowel sounds. Absent: distended, tenderness, guarding, rebound, rigid Extremities exam: Present: normal inspection, full ROM, normal capillary refill. Absent: tenderness, pedal edema, joint swelling, calf tenderness Back exam: Present: normal inspection Neurological exam: Present: alert, oriented X3, CN II-XII intact Psychiatric exam: Present: normal affect, normal mood Skin exam: Present: warm, dry, intact, normal color. Absent: rash Course Vital Signs 03/15/18 03/15/18 03/15/18 18:53 19:50 21:12 Temperature 98.7 F Pulse Rate 70 59 L 59 L Respiratory 18 18 18 Rate Blood Pressure 124/86 153/57 117/64 O2 Sat by Pulse 100 99 99 Oximetry EKG Findings - EKG Comments: EKG Findings:: EKG shows sinus bradycardia rate 59, AK 172, QRS 86, QTc 425 Medical Decision Making - Lab Data Result diagrams: 03/15/18 19:35 03/15/18 19:35 Lab Results 03/15/18 03/15/18 03/15/18 Range/Units 19:35 19:35 19:35 WBC 14.2 H (3.8-10.6) k/uL RBC 4.52 (3.80-5.40) m/uL Hgb 13.0 (11.4-16.0) gm/dL Hct 37.3 (34.0-46.0) % MCV 82.6 (80.0-100.0) fL MCH 28.8 (25.0-35.0) pg MCHC 34.9 (31.0-37.0) g/dL RDW 12.3 (11.5-15.5) % Plt Count 297 (150-450) k/uL Neutrophils % 69 % Lymphocytes % 20 % Monocytes % 5 % Eosinophils % 3 % Basophils % 1 % Neutrophils # 9.8 H (1.3-7.7) k/uL Lymphocytes # 2.9 (1.0-4.8) k/uL Monocytes # 0.7 (0-1.0) k/uL Eosinophils # 0.4 (0-0.7) k/uL Basophils # 0.1 (0-0.2) k/uL PT (9.0-12.0) sec INR (<1.2) APTT (22.0-30.0) sec Sodium 142 (137-145) mmol/L Potassium 4.0 (3.5-5.1) mmol/L Chloride 105 (98-107) mmol/L Carbon Dioxide 23 (22-30) mmol/L Anion Gap 14 mmol/L BUN 15 (7-17) mg/dL Creatinine 0.70 (0.52-1.04) mg/dL Est GFR (CKD-EPI)AfAm >90 (>60 ml/min/1.73 sqM) Est GFR (CKD-EPI)NonAf >90 (>60 ml/min/1.73 sqM) Glucose 89 (74-99) mg/dL Calcium 9.6 (8.4-10.2) mg/dL Phosphorus 4.3 (2.5-4.5) mg/dL Magnesium 2.0 (1.6-2.3) mg/dL Total Bilirubin 0.4 (0.2-1.3) mg/dL AST 19 (14-36) U/L ALT 25 (9-52) U/L Alkaline Phosphatase 62 (38-126) U/L Total Creatine Kinase 73 (30-135) U/L CK-MB (CK-2) 0.4 (0.0-2.4) ng/mL CK-MB (CK-2) Rel Index 0.5 Troponin I <0.012 (0.000-0.034) ng/mL Total Protein 7.1 (6.3-8.2) g/dL Albumin 3.9 (3.5-5.0) g/dL Urine Color Urine Appearance (Clear) Urine pH (5.0-8.0) Ur Specific [place] (1.001-1.035) Urine Protein (Negative) Urine Glucose (UA) (Negative) Urine Ketones (Negative) Urine Blood (Negative) Urine Nitrite (Negative) Urine Bilirubin (Negative) Urine Urobilinogen (<2.0) mg/dL Ur Leukocyte Esterase (Negative) Urine RBC (0-5) /hpf Urine WBC (0-5) /hpf Ur Squamous Epith Cells (0-4) /hpf Urine Bacteria (None) /hpf Urine Mucus (None) /hpf Urine Sperm (None) /hpf Urine HCG, Qual (Not Detectd) 03/15/18 03/15/18 03/15/18 Range/Units 19:35 19:35 19:35 WBC (3.8-10.6) k/uL RBC (3.80-5.40) m/uL Hgb (11.4-16.0) gm/dL Hct (34.0-46.0) % MCV (80.0-100.0) fL MCH (25.0-35.0) pg MCHC (31.0-37.0) g/dL RDW (11.5-15.5) % Plt Count (150-450) k/uL Neutrophils % % Lymphocytes % % Monocytes % % Eosinophils % % Basophils % % Neutrophils # (1.3-7.7) k/uL Lymphocytes # (1.0-4.8) k/uL Monocytes # (0-1.0) k/uL Eosinophils # (0-0.7) k/uL Basophils # (0-0.2) k/uL PT 9.9 (9.0-12.0) sec INR 1.0 (<1.2) APTT 24.2 (22.0-30.0) sec Sodium (137-145) mmol/L Potassium (3.5-5.1) mmol/L Chloride (98-107) mmol/L Carbon Dioxide (22-30) mmol/L Anion Gap mmol/L BUN (7-17) mg/dL Creatinine (0.52-1.04) mg/dL Est GFR (CKD-EPI)AfAm (>60 ml/min/1.73 sqM) Est GFR (CKD-EPI)NonAf (>60 ml/min/1.73 sqM) Glucose (74-99) mg/dL Calcium (8.4-10.2) mg/dL Phosphorus (2.5-4.5) mg/dL Magnesium (1.6-2.3) mg/dL Total Bilirubin (0.2-1.3) mg/dL AST (14-36) U/L ALT (9-52) U/L Alkaline Phosphatase (38-126) U/L Total Creatine Kinase (30-135) U/L CK-MB (CK-2) (0.0-2.4) ng/mL CK-MB (CK-2) Rel Index Troponin I (0.000-0.034) ng/mL Total Protein (6.3-8.2) g/dL Albumin (3.5-5.0) g/dL Urine Color Light Yellow Urine Appearance Clear (Clear) Urine pH 6.0 (5.0-8.0) Ur Specific [place] 1.014 (1.001-1.035) Urine Protein Negative (Negative) Urine Glucose (UA) Negative (Negative) Urine Ketones Negative (Negative) Urine Blood Negative (Negative) Urine Nitrite Negative (Negative) Urine Bilirubin Negative (Negative) Urine Urobilinogen <2.0 (<2.0) mg/dL Ur Leukocyte Esterase Small H (Negative) Urine RBC <1 (0-5) /hpf Urine WBC 3 (0-5) /hpf Ur Squamous Epith Cells 2 (0-4) /hpf Urine Bacteria Occasional H (None) /hpf Urine Mucus Rare H (None) /hpf Urine Sperm Rare (None) /hpf Urine HCG, Qual Not Detected (Not Detectd) Disposition Clinical Impression: Obesity (BMI 30-39.9), PCOS (polycystic ovarian syndrome), Major depressive disorder, Depression, Chest pain, TIA (transient ischemic attack) Disposition: ADMITTED IP TO THIS HOSP Condition: Fair Referrals: Rogelio Ynag MD [Primary Care Provider] - 1-2 days
[2018-03-15 19:44] LABS: Basophils # (A) 0.1 k/uL (0-0.2); Basophils % (A) 1 %; Eosinophils # (A) 0.4 k/uL (0-0.7); Eosinophils % (A) 3 %; HCT 37.3 % (34.0-46.0); Lymphocytes # (A) 2.9 k/uL (1.0-4.8); Lymphocytes % (A) 20 %; MCH 28.8 pg (25.0-35.0); MCHC 34.9 g/dL (31.0-37.0); MCV 82.6 fL (80.0-100.0); Mean Platelet Volume 7.1; Monocytes # (A) 0.7 k/uL (0-1.0); Monocytes % (A) 5 %; Neutrophils # (A) 9.8 k/uL (1.3-7.7); Neutrophils % (A) 69 %; Platelet Count 297 k/uL (150-450); RBC 4.52 m/uL (3.80-5.40); RDW 12.3 % (11.5-15.5); WBC 14.2 k/uL (3.8-10.6)
[2018-03-15 19:53] LABS: Partial Thromboplastin Time 24.2 sec (22.0-30.0); Prothrombin Time 9.9 sec (9.0-12.0)
[2018-03-15 19:58] LABS: Appearance,Urine Clear (Clear); Bacteria,Urine Occasional /hpf; Bilirubin,Urine Negative (Negative); Blood,Urine Negative (Negative); Color,Urine Light Yellow; Glucose,Urine (UA) Negative (Negative); Ketones,Urine Negative (Negative); Leukocyte Esterase,Urine Small (Negative); Mucus,Urine Rare /hpf; Nitrite,Urine Negative (Negative); Protein,Urine Negative (Negative); RBC,Urine <1 /hpf (0-5); Specific Gravity,Urine 1.014 (1.001-1.035); Sperm,Urine Rare /hpf; Squamous Epithelial Cell,Urine 2 /hpf (0-4); Urobilinogen,Urine <2.0 mg/dL (<2.0); WBC,Urine 3 /hpf (0-5)
[2018-03-15 20:00] LABS: ALT 25 U/L (9-52); AST 19 U/L (14-36); Albumin 3.9 g/dL (3.5-5.0); Alkaline Phosphatase 62 U/L (38-126); Anion Gap 14 mmol/L; Blood Urea Nitrogen 15 mg/dL (7-17); Calcium 9.6 mg/dL (8.4-10.2); Carbon Dioxide 23 mmol/L (22-30); Chloride 105 mmol/L (98-107); Glucose 89 mg/dL (74-99); Phosphorus 4.3 mg/dL (2.5-4.5); Sodium 142 mmol/L (137-145); Total Bilirubin 0.4 mg/dL (0.2-1.3); Total Protein 7.1 g/dL (6.3-8.2)
[2018-03-15 20:01] LABS: Creatine Kinase 73 U/L (30-135)
[2018-03-15 20:14] LABS: Creatine Kinase MB 0.4 ng/mL (0.0-2.4); Troponin I <0.012 ng/mL (0.000-0.034)
--- NOTE | 2018-03-15 20:45 | CT ---
EXAMINATION: CT brain wo con DATE AND TIME: 03/15/2018 8:17 PM ORDERING PROVIDER: Antolin Dejesus DO CLINICAL INDICATION: weakness TECHNIQUE: Standard departmental protocol. COMPARISON: 11/07/2017 DESCRIPTION: The calvarium is intact. There is no intracranial hemorrhage. There is no mass or mass e ffect. There is no definite new attenuation defect. Remainder of the intra-axial and extra-axial comp artment examination is unremarkable. The paranasal sinuses, middle ear cavities, and mastoid sinus ai r cells are clear. The orbits are intact. IMPRESSION: NO ACUTE PROCESS.
--- NOTE | 2018-03-15 20:47 | XR ---
EXAMINATION: XR chest 2V DATE AND TIME: 03/15/2018 8:17 PM ORDERING PROVIDER: Antloin Dejesus DO CLINICAL INDICATION: Weakness TECHNIQUE: PA and lateral COMPARISON: 07/16/2017 DESCRIPTION: The lungs are clear. The pleural spaces are negative. The cardiac silhouette is not enlarged. The mediastinal and pleural silhouettes are unremarkable. The skeletal structures are intact without focal findings. The soft tissues are unremarkable. IMPRESSION: NO ACUTE PROCESS.
[2018-03-15] MEDS ORDERED: RX INFO: IV CONTRAST WAS GIVEN 1 EACH MISC MISCELLANE PRN (21:20)
[2018-03-15] MEDS ORDERED: ACETAMINOPHEN IV (For NPO) 1,000 MG in EMPTY BAG 1 BAG IVPB STA (21:50)
--- NOTE | 2018-03-15 21:58 | CT ---
EXAMINATION TYPE: CT angio chest with contrast and with 3-D Reconstruction rendering. DATE OF EXAM: 03/15/2018 9:47 PM COMPARISON: NONE HISTORY: Chest pain CT DLP: 404.2 mGycm. Automated exposure control for dose reduction was used. CONTRAST: CTA scan of the thorax is performed with IV Contrast, patient injected with 55ml mL of Isov ue 370, pulmonary embolism protocol. 3-D reconstructions. FINDINGS: LUNGS: The lungs are grossly clear, there is no concerning parenchymal mass or nodule identified. T here is no pleural effusion or pneumothorax seen. The tracheobronchial tree is patent. MEDIASTINUM: There is satisfactory enhancement of the pulmonary artery and its branches, there is no CT evidence for pulmonary embolism. There are no greater than 1 cm hilar or mediastinal lymph nodes. The aorta is unremarkable. There is mild cardiomegaly. No pericardial effusion. SKELETAL STRUCTURES: No focal findings. IMPRESSION: NO ACUTE PROCESS.
[2018-03-15] MEDS ORDERED: NITROGLYCERIN SL TABS 0.4 MG TAB SUBLINGUAL PRN (22:07)
[2018-03-15] MEDS: SODIUM CHLORIDE 0.9% 1,000 ML IV SCH (22:25)
[2018-03-15 23:20] VITALS: BMI 38.9
[2018-03-15] MEDS ORDERED: MONTELUKAST 10 MG TAB PO PRN (23:44)
[2018-03-15] MEDS ORDERED: LORATADINE 10 MG TAB PO PRN (23:44)
[2018-03-16] MEDS ORDERED: MELATONIN 3 MG TABLET PO ONE (00:05)
[2018-03-16] MEDS ORDERED: ONDANSETRON 4 MG/2 ML VIAL IVP PRN (00:05)
[2018-03-16] MEDS: ACETAMINOPHEN TAB 325 MG TAB PO PRN ×3 (00:21→15:45)
[2018-03-16 02:05] LABS: Creatine Kinase 63 U/L (30-135)
[2018-03-16 02:18] LABS: Creatine Kinase MB 0.2 ng/mL (0.0-2.4); Troponin I <0.012 ng/mL (0.000-0.034)
[2018-03-16] MEDS ORDERED: diphenhydrAMINE 50 MG/ML 1 ML VIAL IVP STA (05:57)
[2018-03-16] MEDS ORDERED: methylPREDNISolone SOD SUCCI 125 MG/2 ML VIAL IV STA (05:57)
[2018-03-16] MEDS ORDERED: diphenhydrAMINE 25 MG CAP PO PRN (05:58)
[2018-03-16 07:05] LABS: Basophils % (A) 0 %; Eosinophils # (A) 0.5 k/uL (0-0.7); Eosinophils % (A) 3 %; HCT 38.1 % (34.0-46.0); HGB 12.6 gm/dL (11.4-16.0); Lymphocytes # (A) 1.6 k/uL (1.0-4.8); Lymphocytes % (A) 12 %; Mean Platelet Volume 7.1; Monocytes # (A) 0.8 k/uL (0-1.0); Monocytes % (A) 6 %; Neutrophils # (A) 10.6 k/uL (1.3-7.7); Neutrophils % (A) 77 %; Platelet Count 279 k/uL (150-450); RBC 4.48 m/uL (3.80-5.40); RDW 12.3 % (11.5-15.5); WBC 13.7 k/uL (3.8-10.6)
[2018-03-16 07:35] LABS: Anion Gap 11 mmol/L; Blood Urea Nitrogen 11 mg/dL (7-17); Calcium 8.7 mg/dL (8.4-10.2); Carbon Dioxide 22 mmol/L (22-30); Chloride 110 mmol/L (98-107); Cholesterol 132 mg/dL (<200); Glucose 86 mg/dL (74-99); HDL Cholesterol 47 mg/dL (40-60); LDL Cholesterol,Calculated 63 mg/dL (0-99); Potassium 4.2 mmol/L (3.5-5.1); Sodium 143 mmol/L (137-145); Triglycerides 112 mg/dL (<150)
[2018-03-16] MEDS ORDERED: predniSONE 20 MG TAB PO PRN (08:00)
[2018-03-16 08:07] LABS: Creatine Kinase 62 U/L (30-135)
[2018-03-16 08:19] LABS: Creatine Kinase MB <0.2 ng/mL (0.0-2.4); Troponin I <0.012 ng/mL (0.000-0.034)
--- NOTE | 2018-03-16 08:56 | US ---
EXAMINATION TYPE: US carotid duplex BILAT DATE OF EXAM: 03/16/2018 COMPARISON: CTA chest from yesterday. CLINICAL HISTORY: Stenosis. Numbness left face and neck, chest pain EXAM MEASUREMENTS: RIGHT: Peak Systolic Velocity (PSV) cm/sec ----- Right CCA: 94.3 ----- Right ICA: 101.2 ----- Right ECA: 99.0 ICA/CCA ratio: 1.1 RIGHT: End Diastole cm/sec ----- Right CCA: 26.0 ----- Right ICA: 51.5 ----- Right ECA: 15.0 LEFT: Peak Systolic Velocity (PSV) cm/sec ----- Left CCA: 104.4 ----- Left ICA: 78.9 ----- Left ECA: 128.7 ICA/CCA ratio: 0.8 LEFT: End Diastole cm/sec ----- Left CCA: 28.0 ----- Left ICA: 37.0 ----- Left ECA: 20.4 VERTEBRALS (direction of flow): Right Vertebral: Antegrade Left Vertebral: Antegrade Rhythm: Normal Grayscale images show no significant focal plaque at carotid bulb level. Visualized portion of both i nternal carotid arteries is within normal limits. Technologist identifies prominent lymph nodes that have loss central fatty hilum in the bilateral neck. Correlating with CT cervical spine November 07, 2017 bilateral prominent adenopathy is noted, few are slightly enlarged in size, for reference right sided lymph node at level of hyoid bone measures 1.3 x 1.1 cm axial image 39. IMPRESSION: No significant plaque or hemodynamic significant stenosis is seen in either internal car otid artery. Prominent bilateral neck lymph nodes redemonstrated, neoplasm such as lymphoma is in d ifferential. Clinical correlation and follow-up advised. Differential also includes infectious/inflam matory processes and granulomatous disease.
--- NOTE | 2018-03-16 08:57 | P.CRDCN ---
History of Present Illness Consult date: 03/16/18 Requesting physician: Vel Mcgee Consult reason: chest pain Chief complaint: Chest pain History of present illness: This is a 27-year-old female with history of seasonal ALLERGIES, asthma, depression, who presented to the hospital with symptoms of chest discomfort. She states that she developed a sharp pain underneath her left breast, she also felt the discomfort radiates up into her left shoulder area. She states she had an episode of vomiting and was mildly short of breath. Subsequent to that she again had similar symptoms, this time she states that she also noticed some numbness in her left upper arm going up her face into her head. For this reason she came to the emergency room for further evaluation. Patient does take control, she states that she started on at approximately 2 weeks ago. EKG on arrival here showed a normal sinus rhythm with no acute changes. CAT scan of the brain did not reveal any acute process. Chest x-ray does not reveal any acute process. CTA of the chest was performed which did not reveal any acute process, no evidence of pulmonary embolism. Blood pressure this morning 116/58, heart rate in the 60s, 97% on room air. White blood cell count 14.2 on admission, 13.7 this morning, hemoglobin 12.6, platelet count 279. Sodium 143, potassium 4.2, BUN 11, creatinine 0.6. Troponins have been negative 3, cholesterol 132, LDL 63, HDL 47, triglycerides 112. At the time of my examination this morning, patient complains of feeling extremely tired, she states it is difficult to keep her eyes open. Denies any chest pain at present, continues to have mild numbness of the left side of her neck up into the top of her head. Past Medical History Past Medical History: Asthma Additional Past Medical History / Comment(s): KIDNEY STONES. migraine headache. PCOS. heavy menses History of Any Multi-Drug Resistant Organisms: None Reported Past Surgical History: Cholecystectomy Additional Past Surgical History / Comment(s): D AND C and left tube removed due to ectopic tubal . hx of tubes in both ears Additional Past Anesthesia/Blood Transfusion Reaction / Comment(s): anesthesia reaction: major n/V and becomes agitated and severe headache Past Psychological History: ADD/ADHD, Anxiety, Depression Additional Psychological History / Comment(s): ocd Smoking Status: Never smoker Past Alcohol Use History: Occasional Additional Past Alcohol Use History / Comment(s): 1-2 drinks at a time, once or twice a month Past Drug Use History: Marijuana - Past Family History father Additional Family Medical History / Comment(s): drug abuse, and of massive heart attack thought to be related to drug overdose mother Additional Family Medical History / Comment(s): bipolar disorder Medications and Allergies Home Medications Medication Instructions Recorded Confirmed Type Escitalopram [Lexapro] 10 mg PO DAILY #30 tab 07/17/17 03/15/18 Rx Albuterol Inhaler [Ventolin Hfa 1 - 2 puff INHALATION RT-Q6H PRN 09/21/17 History Inhaler] Loratadine [Claritin] 10 mg PO DAILY PRN 03/15/18 03/15/18 History Montelukast [Singulair] 10 mg PO DAILY PRN 03/15/18 03/15/18 History Norgestimate-Ethinyl Estradiol 1 tab PO DAILY 03/15/18 03/15/18 History [Ortho Tri-Cyclen Lo Tablet] Allergies Allergy/AdvReac Type Severity Reaction Status Date / Time doxycycline AdvReac Rash/Hives Verified 03/15/18 19:11 sumatriptan [From Imitrex] AdvReac Unknown Verified 03/15/18 19:11 Physical Exam Vitals: Vital Signs Temp Pulse Pulse Resp BP BP Pulse Ox 03/16/18 08:00 97.0 F L 68 15 116/58 97 03/16/18 04:00 97.2 F L 63 17 108/62 97 03/16/18 00:00 97 F L 60 17 135/85 99 03/15/18 22:53 97.3 F L 65 18 116/75 99 03/15/18 22:35 97.5 F L 67 17 134/86 99 03/15/18 21:12 59 L 18 117/64 99 03/15/18 19:50 59 L 18 153/57 99 03/15/18 18:53 98.7 F 70 18 124/86 100 Intake and Output 03/15/18 03/16/18 03/16/18 22:59 06:59 14:59 Intake Total 700 Balance 700 Intake: Intake, IV Titration 700 Amount Sodium Chloride 0.9% 1, 700 000 ml @ 100 mls/hr IV . Q10H JOSE E Rx#:[id number] Other: Voiding Method Toilet Weight 109.3 kg 109.3 kg PHYSICAL EXAMINATION: HEENT: [Head is atraumatic, normocephalic. Pupils equal, round. Neck is supple. There is no elevated jugular venous pressure.] HEART EXAMINATION: [Heart S1, S2 normal. No murmur or gallop heard.] CHEST EXAMINATION:[ Lungs are clear to auscultation and precussion. No chest wall tenderness is noted on palpation or with deep breathing.] ABDOMEN: [ Soft, nontender. Bowel sounds are heard. No organomegaly noted]. EXTREMITIES:[ 2+ peripheral pulses with no evidence of peripheral edema and no calf tenderness noted]. NEUROLOGIC [patient is awake, alert and oriented -3.] . Results 03/16/18 06:42 03/16/18 06:42 Cardiac Enzymes 03/15/18 03/15/18 03/16/18 Range/Units 19:35 19:35 01:22 AST 19 (14-36) U/L CK-MB (CK-2) 0.4 0.2 (0.0-2.4) ng/mL Troponin I <0.012 <0.012 (0.000-0.034) ng/mL 03/16/18 Range/Units 06:42 AST (14-36) U/L CK-MB (CK-2) <0.2 (0.0-2.4) ng/mL Troponin I <0.012 (0.000-0.034) ng/mL Coagulation 03/15/18 Range/Units 19:35 PT 9.9 (9.0-12.0) sec APTT 24.2 (22.0-30.0) sec Lipids 03/16/18 Range/Units 06:42 Triglycerides 112 (<150) mg/dL Cholesterol 132 (<200) mg/dL HDL Cholesterol 47 (40-60) mg/dL CBC 03/15/18 03/16/18 Range/Units 19:35 06:42 WBC 14.2 H 13.7 H (3.8-10.6) k/uL RBC 4.52 4.48 (3.80-5.40) m/uL Hgb 13.0 12.6 (11.4-16.0) gm/dL Hct 37.3 38.1 (34.0-46.0) % Plt Count 297 279 (150-450) k/uL Comprehensive Metabolic Panel 03/15/18 03/16/18 Range/Units 19:35 06:42 Sodium 142 143 (137-145) mmol/L Potassium 4.0 4.2 (3.5-5.1) mmol/L Chloride 105 110 H (98-107) mmol/L Carbon Dioxide 23 22 (22-30) mmol/L BUN 15 11 (7-17) mg/dL Creatinine 0.70 0.61 (0.52-1.04) mg/dL Glucose 89 86 (74-99) mg/dL Calcium 9.6 8.7 (8.4-10.2) mg/dL AST 19 (14-36) U/L ALT 25 (9-52) U/L Alkaline Phosphatase 62 (38-126) U/L Total Protein 7.1 (6.3-8.2) g/dL Albumin 3.9 (3.5-5.0) g/dL Current Medications Generic Name Dose Route Start Last Admin Trade Name Freq PRN Reason Stop Dose Admin Acetaminophen 650 mg 03/16/18 00:09 03/16/18 05:41 Tylenol Tab PO 650 mg Q6HR PRN Administration Fever and/ or Pain Aspirin 325 mg 03/16/18 09:00 Aspirin PO DAILY JOSE E Diphenhydramine HCl 25 mg 03/16/18 05:58 Benadryl PO Q6H PRN Allergic Reaction Sodium Chloride 1,000 mls @ 100 mls/hr 03/15/18 22:15 03/15/18 22:25 Saline 0.9% IV 100 mls/hr .Q10H JOSE E Administration Loratadine 10 mg 03/15/18 23:44 Claritin PO DAILY PRN Allergy Symptoms Miscellaneous Information 1 each 03/15/18 21:20 Rx Info: Iv Contrast Was Given MISCELLANE 03/17/18 21:20 DAILY PRN Per Protocol Montelukast Sodium 10 mg 03/15/18 23:44 Singulair PO DAILY PRN Allergy Symptoms Nitroglycerin 0.4 mg 03/15/18 22:07 Nitrostat SUBLINGUAL Q5M PRN Chest Pain Non-Formulary Medication 1 tab 03/16/18 09:00 Norgestimate-Ethinyl Estradiol [Ortho Tri-Cyclen Lo Tablet] PO DAILY [facility] Ondansetron HCl 4 mg 03/16/18 00:05 03/16/18 00:19 Zofran IVP 4 mg Q6HR PRN Administration Nausea And Vomiting Prednisone 40 mg 03/16/18 08:00 PO Q4H PRN Allergic Reaction Intake and Output 03/15/18 03/16/18 03/16/18 22:59 06:59 14:59 Intake Total 700 Balance 700 Intake: Intake, IV Titration 700 Amount Sodium Chloride 0.9% 1, 700 000 ml @ 100 mls/hr IV . Q10H JOSE E Rx#:[id number] Other: Voiding Method Toilet Weight 109.3 kg 109.3 kg 03/16/18 06:42 03/16/18 06:42 EKG Interpretations (text) EKG shows a normal sinus rhythm with no acute changes. Assessment and Plan Plan: Assessment and plan #1 atypical chest discomfort, troponins negative 3, EKG shows normal sinus rhythm with no acute changes. CTA negative for pulmonary embolism #2 left arm and facial numbness and tingling, CT of the brain negative. Doppler study pending. #3 history of depression #4 asthma #5 seasonal ALLERGIES #6 cardiac risk factors negative for hypertension, no diabetes, no hyperlipidemia, patient is a nonsmoker, she does state there is a history of coronary artery disease in her maternal grandmother. Plan We will obtain an echocardiogram with Doppler study. Discontinue aspirin. Suggest a stress echocardiographic study , when cleared by neuro, to rule out any underlying coronary artery disease although the patient's risk profile is significantly low and presenting symptoms are atypical. Further recommendations will be based on these findings and patient's clinical course. DNP note has been reviewed, I agree with a documented findings and plan of care. Patient was seen and examined.
[2018-03-16] MEDS ORDERED: NORGESTIMATE ETHINYL ESTRADIOL PO SCH (09:00)
[2018-03-16] MEDS ORDERED: ASPIRIN 325 MG TAB PO SCH (09:00)
--- NOTE | 2018-03-16 09:31 | P.PN ---
Progress Note - Text This is an addendum to the dictated cardiology consultation. The patient has no prior cardiac history and presents with brief episodes of chest discomfort, on and off lasting for a few seconds and subsequently started to complain of numbness in the left arm and left side of the face. She is in sinus mechanism with no episodes of tachycardia or bradycardia. She has no prior cardiac history and no recent cardiac workup. Her physical examination shows no evidence of lung congestion and she is in sinus mechanism. Her EKG was sinus mechanism with no acute changes and her cardiac enzymes are unremarkable. The patient chest pain is atypical for ischemic heart disease and she has no significant coronary risk factors. I will obtain an echocardiogram with Doppler , increase her level of activity and await neurological input. Thank you for this consult we will follow with you.
[2018-03-16] MEDS: NORGESTIMATE ETHINYL ESTRADIOL PO SCH (09:43)
--- NOTE | 2018-03-16 11:28 | ECHOF ---
Referral Reason:Thrombus MEASUREMENTS -------- HEIGHT: 167.6 cm WEIGHT: 108.9 kg BP: 108/62 RVIDd: 3.7 cm (< 3.3) IVSd: 1.1 cm (0.6 - 1.1) LVIDd: 4.1 cm (3.9 - 5.3) LVPWd: 1.1 cm (0.6 - 1.1) IVSs: 1.5 cm LVIDs: 2.8 cm LVPWs: 1.7 cm LA Diam: 3.8 cm (2.7 - 3.8) LAESV Index (A-L): 28.48 ml/m Ao Diam: 2.8 cm (2.0 - 3.7) AV Cusp: 2.1 cm (1.5 - 2.6) MV EXCURSION: 10.412 mm (> 18.000) MV EF SLOPE: 107 mm/s (70 - 150) EPSS: 0.7 cm MV E Jeffrey: 1.16 m/s MV DecT: 175 ms MV A Jeffrey: 0.78 m/s MV E/A Ratio: 1.49 RAP: 5.00 mmHg RVSP: 30.68 mmHg FINDINGS -------- Sinus rhythm. This was a technically good study. The left ventricular size is normal. There is borderline concentric left ventricular hypertrophy. Overall left ventricular systolic function is normal with, an EF between 60 - 65 %. The right ventricle is mildly enlarged. The left atrial size is normal. The right atrium is normal in size. The aortic valve is trileaflet and appears structurally normal. There is trace to mild mitral regurgitation. Mild tricuspid regurgitation present. Right ventricular systolic pressure is normal at < 35 mmHg. Trace/mild (physiologic) pulmonic regurgitation. The aortic root size is normal. Normal inferior vena cava with normal inspiratory collapse consistent with estimated right atrial pre ssure of 5 mmHg. There is no pericardial effusion. CONCLUSIONS -------- 1. Sinus rhythm. 2. This was a technically good study. 3. The left ventricular size is normal. 4. There is borderline concentric left ventricular hypertrophy. 5. Overall left ventricular systolic function is normal with, an EF between 60 - 65 %. 6. The right ventricle is mildly enlarged. 7. The left atrial size is normal. 8. The right atrium is normal in size. 9. The aortic valve is trileaflet and appears structurally normal. 10. There is trace to mild mitral regurgitation. 11. Mild tricuspid regurgitation present. 12. Right ventricular systolic pressure is normal at < 35 mmHg. 13. Trace/mild (physiologic) pulmonic regurgitation. 14. The aortic root size is normal. 15. Normal inferior vena cava with normal inspiratory collapse consistent with estimated right atrial pressure of 5 mmHg. 16. There is no pericardial effusion. SERVICE [employer] CONSOLE OPERATOR: Kenyatta Trejo RDCS
[2018-03-16] MEDS: SODIUM CHLORIDE 0.9% 1,000 ML IV SCH ×2 (11:53→21:25)
[2018-03-16] MEDS: ESCITALOPRAM 10 MG TAB PO SCH (11:53)
[2018-03-16] MEDS: ASPIRIN 81 MG PO SCH (18:36)
[2018-03-16] MEDS ORDERED: LORazepam 2 MG/ML INJ IV STA (19:18)
--- NOTE | 2018-03-16 19:23 | HP ---
HISTORY AND PHYSICAL DATE OF ADMISSION: 03/15/18. DATE OF SERVICE: 03/16/18. PRESENTING COMPLAINT: Chest pain. HISTORY OF PRESENTING COMPLAINT: A very pleasant 27-year-old patient Dr. Yang. Chronic stable medical conditions include anxiety, depression, asthma, polycystic ovarian syndrome. The patient works at [employer] was working with medications. She felt a very sharp pain below the left breast area as if somebody had pushed in there. It did not make any difference when she was pressing on it. The patient also developed some nausea. The patient's symptoms lasted for about a matter of minutes. Subsequently patient noticed numbness of the left face, left arm and weakness too. There was no change in vision. No change in his speech. No trouble walking. The numbness and weakness on the left arm has persisted and hence patient was brought in. Admitted to the ER. The patient denies use of any recreational drugs. REVIEW OF SYSTEMS: CONSTITUTIONAL: None. HEENT: As above. RESPIRATORY: None. CARDIOVASCULAR: No precordial pain as such. GASTROINTESTINAL: None. MUSCULOSKELETAL: As above. DERMATOLOGICAL: None. HEMATOLOGIC: None. LYMPHATIC: None. PSYCHIATRY: Anxiety and depression controlled. NEUROLOGICAL: As above. PAST MEDICAL HISTORY: Asthma, kidney stones, migraine, polycystic ovarian syndrome, heavy menstrual periods, anxiety, depression, OCD. PAST SURGICAL HISTORY: Cholecystectomy, D&C, left tube removal with ectopic tubal and tubes in both the ears. SOCIAL HISTORY: Does marijuana about twice a month. No smoking. Alcohol occasionally. Works at [employer] home. Lives with her daughter. FAMILY HISTORY: Heart disease related to massive drug overdose. HOME MEDICATIONS: 1. Claritin 10 mg daily p.r.n. 2. Lexapro 10 mg p.o. daily. 3. Albuterol 1-2 puffs q.6h p.r.n. 4. Ytunk-Oeq-Lawavt-Lo 1 tablet p.o. daily. 5. Singulair 10 mg p.o. daily p.r.n. ALLERGIES: DOXYCYCLINE AND SUMATRIPTAN. PHYSICAL EXAMINATION: VITAL SIGNS ON PRESENTATION: Temperature 98.7, pulse 70, respiratory 18, blood pressure 120/86, pulse ox 100% on room air. GENERAL APPEARANCE: Well built, BMI 38.9, sitting up, comfortable. EYES: Pupils equal. Conjunctivae normal. HEENT: External nose and ears normal. Oral cavity normal. NECK: JVD not raised. Mass not palpable. RESPIRATORY: Effort normal, lungs are clear. CARDIOVASCULAR: 1st and 2nd sounds, no edema. ABDOMEN: Soft, nontender. Liver and spleen not palpable. LYMPHATIC: No lymph nodes palpable in neck or axillae. PSYCHIATRY: Alert and oriented x3. Mood and affect normal. NEUROLOGICAL: Pupils are equal, symmetrical. Decreased sensation on the left side of the face. Also decreased sensation in the left arm. Power in the left arm is actually 4/5. Reflexes otherwise are equal, symmetrical. INVESTIGATIONS: White count 14.2, hemoglobin 13, potassium 4.0, troponin x3 negative. ASSESSMENT: 1. This is a patient who presented with left sharp pain below the left breast lasting for less than a minute and then subsequently patient developed numbness on the left side of the face, slight left arm weakness which has persisted. This is rather atypical for cardiac presentation more likely I am thinking about a demyelinating disorder, though the presentation is rather acute. We will also do a cervical spine x-ray to rule out any radiculopathy. 2. Intermittent asthma. 3. Polycystic ovarian syndrome. 4. Obesity, BMI 38.9. 5. Anxiety and depression, not otherwise specified. PLAN: Will order an MRI of the brain. Neurology was consulted from the ER. Also Cardiology was consulted. The patient did have a chest CTA that otherwise was unremarkable. Carotid Doppler. The patient does have some prominent neck lymph nodes. I will also get a hematology consultation in view of the element of leukocytosis and lymph nodes present on the CT scan. MMODL / IJN: [id number] /
[2018-03-16] MEDS ORDERED: MAGNESIUM SULFATE-D5W PMX 1 GM in DEXTROSE/WATER 1 100ML.BAG IVPB ONE (20:00)
[2018-03-16 21:39] VITALS: RESP 16
--- NOTE | 2018-03-16 23:05 | CONS ---
CONSULTATION DATE OF CONSULTATION: 03/16/2018. CHIEF COMPLAINT: Numbness and headache. HISTORY OF PRESENT ILLNESS: The patient is a pleasant 27-year-old, female, who is being evaluated by the neurology service per the request of Dr. Mcgee for the above-mentioned complaints. The patient was initially brought into [facility] Emergency Room with complaint of chest pain. She started having a deep chest pain that radiated to her left upper extremity while she was at work yesterday afternoon. Her cardiac workup has been negative thus far. She then developed numbness and tingling along her left face and her left upper extremity. A CT scan of the brain was done, which was normal. Her carotid Doppler showed no hemodynamically significant stenosis. There was incidental findings of enlarged lymph nodes. A CT angiogram of the chest was done, which showed no evidence of any embolism. Her CBC showed mild leukocytosis at 13.7. Her comprehensive metabolic profile, cardiac enzymes and fasting lipid panel were normal. At the time of my evaluation, she is sitting up in her bed and appears to be in no acute distress. She is still having some numbness involving her left face and left upper extremity. She also notices some weakness in her left upper extremity. She is also complaining of a headache which started earlier today. She does have history of migraine headaches. She describes her pain as a pressure pain mainly in the frontal region and she rates it at 4/10 in intensity at the time of my evaluation. PAST MEDICAL HISTORY: Asthma, migraine headaches, history of nephrolithiasis, depression, anxiety disorder, history of cholecystectomy, history of D and C. SOCIAL HISTORY: She denies any tobacco or IV drug use. She admits to occasional marijuana use and occasional alcohol use. FAMILY HISTORY: Positive for migraines and psychiatric disorders and heart disease. HOME MEDICATIONS: Reviewed in the chart. ALLERGIES: IMITREX AND DOXYCYCLINE. REVIEW OF SYSTEM: CONSTITUTIONAL: Positive for fatigue. EYES: Negative. ENT: Negative. CARDIOVASCULAR: As mentioned above. RESPIRATORY: Positive for occasional shortness of breath. NEUROLOGICAL: As mentioned above. GASTROINTESTINAL: Negative. GENITOURINARY: Negative. PSYCHIATRIC: Positive for history of depression and anxiety disorder. ENDOCRINE: Negative. MUSCULOSKELETAL: Negative. DERMATOLOGICAL: Negative. ENDOCRINE: Negative. PHYSICAL EXAM: Vital signs show a temperature of 99.0, pulse 81, respiration 14, blood pressure 122/63. GENERAL APPEARANCE: The patient is a mildly obese female, who appears to be in no acute distress. HEENT: Normocephalic, atraumatic, no facial asymmetry is seen. Extraocular muscles are intact. NECK: Supple with no masses felt. CARDIOVASCULAR: Regular rate and rhythm. ABDOMEN: Nontender nondistended. Extremities showed no edema or clubbing. Neurological exam: The patient is awake, alert, and oriented x3. Speech and language are normal. Strength is 5 minus out of 5 in the left upper extremity and 5/5 elsewhere. Sensory exam showed diminished light touch sensation in the left upper extremity compared to the right. Mild pronator drift is seen on the left side. Cranial nerve testing showed decreased light touch sensation on the left face compared to the right. IMPRESSION: 1. Left-sided numbness. 2. Headache. 3. Left-sided weakness. 4. Atypical chest pain. RECOMMENDATION: The patient continues to have a sensory deficit on the left compared to the right as mentioned above. She also has mild weakness. There are concerns for demyelinating disorder. I will order an MRI of the brain with and without contrast. Given her above- mentioned carotid Doppler findings, I will also order an MRI of the neck with and without contrast. I will order a sedimentation rate and a CRP. I do recommend further workup for her lymphadenopathy to rule out any neoplastic disorder or rheumatological disorder. If her MRI of the brain shows demyelinating lesions, I will consider proceeding with a spinal tap in the outpatient setting. For now, I will start her on IV Solu-Medrol which should also help with her headache. I will also give her a single dose of magnesium sulfate 1 g IV. Continue neuro checks. I will continue to follow with you. Further recommendations to follow. Thank you for allowing me to participate in the care of your patient. If you have any questions, please feel free to contact me. MMODL / IJN: [id number] /
--- NOTE | 2018-03-17 03:12 | MR ---
EXAMINATION TYPE: MR neck wo/w con DATE OF EXAM: 03/16/2018 COMPARISON: NONE HISTORY: left arm and facial numbness/left arm weakness, Abnormal U/S of neck CONTRAST: Standard multiplanar, multisequence MRI departmental protocol utilizing 11 mL intravenous Gadavist ga dolinium contrast. FINDINGS: Thyroid gland is symmetric. There is normal branching pattern of the great vessels on the a ortic arch. Submandibular salivary glands are symmetric. Parotid glands are symmetric. There is no ev idence of a pharyngeal mass. Cervical spinal cord has normal signal pattern. There is no evidence of cord edema. There is no spina l stenosis. There is no cervical paraspinal mass. There is some uncovertebral spurring at C3-4 on the left side without any significant impingement on the spinal canal. I see no pathologic enhancement. There are bilateral enlarged anterior triangle cervical lymph nodes that measure up to 2 cm. IMPRESSION: No evidence of demyelinating disease. Bilateral cervical lymphadenopathy.
--- NOTE | 2018-03-17 03:12 | MR ---
EXAMINATION TYPE: MR brain wo/w con DATE OF EXAM: 03/16/2018 COMPARISON: NONE HISTORY: left arm and facial numbness/left arm weakness, Abnormal U/S of neck TECHNIQUE: Multiplanar, multisequence images of the brain and brainstem is performed without and with IV contras t, utilizing 11 mL intravenous Gadavist . FINDINGS: Ventricles and sulci appear normal. There is no mass effect nor midline shift. There is no sign of intracranial hemorrhage. There is no sign of cerebral edema. There are numerous variable size d foci of increased signal in the periventricular white matter. The largest is around the occipital h orns of the lateral ventricles and measures 10 mm. Total number is approximately 20. There is some li near subependyma increased signal along the left lateral ventricle. The brainstem has normal signal p attern. Cerebellum appears normal. Corpus callosum appears normal. I see no pathologic enhancement. There is no evidence of cortical inf arct. Pituitary appears normal. IMPRESSION: Numerous nonenhancing small high signal white matter lesions on the T2 and FLAIR images i s suggestive of demyelinating disease in this relatively young patient.
[2018-03-17] MEDS: SODIUM CHLORIDE 0.9% 1,000 ML IV SCH ×2 (06:46→11:13)
[2018-03-17 07:58] VITALS: TEMP 98.2
[2018-03-17] MEDS: ASPIRIN 81 MG PO SCH (08:02)
[2018-03-17] MEDS: NORGESTIMATE ETHINYL ESTRADIOL PO SCH (08:02)
[2018-03-17] MEDS: ESCITALOPRAM 10 MG TAB PO SCH (08:02)
[2018-03-17 11:12] VITALS: BP 130/65; PULSE 66
--- NOTE | 2018-03-17 15:29 | P.PN ---
Subjective Progress Note Date: 03/17/18 Principal diagnosis: Headache with left-sided numbness and tingling/paresthesia Neurology is following a 27-year-old female being followed for headache in right upper extremity and lower extremity numbness and tingling. Patient was brought to the emergency room with original complaints of chest pain. Pain radiating the left upper extremity while at work. Cardiac workup was negative. Patient then developed numbness and tingling left face and left upper extremity. CT brain on arrival was normal. Carotid Doppler showed no hemodynamically significant stenosis. Incidental finding of enlarged lymph nodes. CT angiogram of chest was done which showed no evidence of embolism. CBC showed mild leukocytosis. CMP, cardiac consent, fasting lipid panel were all normal. Since admission, patient has had MRI brain with and without contrast. Findings note numerous nonenhancing small high signal white matter lesions on the T2 and FLAIR images suggestive of demyelination disease and relatively young patient. Patient also had MRI cervical spine with and without contrast which noted no evidence of demyelinating disease. Bilateral cervical lymphadenopathy. Patient has had IV Solu-Medrol for head pain as well as numbness and tingling. Patient states she is approximately 95% return to baseline. Patient does have previous workup approximately 3-5 years ago at another facility including MRI of the brain as well as a lumbar puncture for possible MS. Patient states that her MRI did have noted changes but her LP was negative. Ongoing waxing and waning symptoms include difficulty with multitasking, significant fatigue, joint pain bilaterally, vision changes, memory dysfunction and intermittent but persistent paresthesia of the skin. Since 5 years ago, patient has had no formal workup or follow-up related to her complaints. On contact, patient was alert and oriented 3, supine in bed, family at the bedside. Patient was in no acute distress. Objective - Vital Signs Vital signs: Vital Signs Temp 98.2 F 03/17/18 07:55 Pulse 66 03/17/18 11:27 Resp 16 03/17/18 11:06 BP 130/65 03/17/18 11:06 Pulse Ox 99 03/17/18 11:06 Intake & Output 03/16/18 03/17/18 03/17/18 18:59 06:59 18:59 Intake Total 480 1100 700 Balance 480 1100 700 Weight 108.3 kg Intake: IV 1100 500 Magnesium Sulfate-D5w Pmx 100 1 gm In Dextrose/Water 1 100ml.bag @ 100 mls/hr IVPB ONCE ONE Rx#: [id number] Sodium Chloride 0.9% 1, 900 500 000 ml @ 100 mls/hr IV . Q10H [facility] Rx#:[id number] methylPREDNISolone SOD 100 SUCC 250 mg In Sodium Chloride 0.9% 100 ml @ 100 mls/hr IVPB Q8H [facility] Rx#:[id number] Oral 480 200 Other: Voiding Method Toilet # Voids 2 1 # Bowel Movements 0 - Exam Gen. appearance: Alert, in no apparent distress Head: Atraumatic normocephalic, normal inspection Eyes: Well appearance, PERRL, EOMI. absent: Scleral icterus, conjunctival injection, nystagmus, periorbital swelling. Ear nose and throat: Normal exam, mucous membranes moist Neck: Normal inspection. Absent tenderness, lymphadenopathy Respiratory: No increased work of breathing. Cardiovascular: Regular rate, normal rhythm GIabdominal: Normal bowel sounds, non distended, no tenderness, no guarding, no rebound, no rigidity. Extremities: All range of motion, normal capillary refill, no tenderness, pedal edema, joint swelling, calf tenderness Neurological: Alert and oriented 3, cranial nerves II through XII intact, no unilateral lateralizing weakness, no seizure activity noted on physical exam, no pronator drift and no nystagmus. Strength is equal and symmetrical in all 4 extremities. Patient does still have some decreased sensation in the head and neck which varies from left to right to the distribution. Psychological: Mood and affect appropriate setting - Labs CBC & Chem 7: 03/16/18 06:42 03/16/18 06:42 Labs: Abnormal Lab Results - Last 24 Hours (Table) 03/16/18 Range/Units 06:42 C-Reactive Protein 24.6 H (<10.0) mg/L Microbiology - Last 24 Hours (Table) 03/15/18 19:35 Urine Culture - Preliminary Urine,Voided Gram Neg Bacilli Assessment and Plan (1) White matter changes Current Visit: Yes Status: Acute Code(s): DAP0605 - SNOMED Code(s): 805905285 (2) Left-sided weakness Current Visit: Yes Status: Acute Code(s): R53.1 - WEAKNESS SNOMED Code(s) : 732635929 (3) Migraine headache with aura Current Visit: No Status: Acute Code(s): G43.109 - MIGRAINE WITH AURA, NOT INTRACTABLE, W/O STATUS MIGRAINOSUS SNOMED Code(s): 0443652 Plan: 1. White matter changes 2. Migraine/headache pain 3. Left upper and lower extremity numbness and tingling MRI of the brain noted findings consistent with possible demyelination disorder. MRI cervical spine did not have any evidence of demyelinization. Patient has had significant return to baseline since administration of IV Solu- Medrol. Although originally given for her migraine/headache pain, patient states that her global complaints including joint pain, fatigue, mental clarity , vision changes have abated. As noted previously, patient does have history of previous workup for possible multiple sclerosis. It is noted that the patient had elevated CRP. Patient will need to follow-up outpatient for further multiple sclerosis workup. Workup to include possible lumbar puncture. Patient has old MRI images and reports from several years ago which were reported to have white matter changes noted. We'll compare previous MRI and current MRI for possible Bueno's criteria in the outpatient setting. Vitamin D level was also ordered. Migraine/headache pain: resolved Left upper and lower extremity numbness and tingling and weakness: 95% back to baseline and is still currently improving. Status: Patient can be cleared for discharge from a neurological standpoint. Patient to follow-up in our office within 10-14 days. I discussed the patients history, physical exam, diagnostic testing, lab work and imaging with Dr Mccullough prior to implementing the plan above. He agrees with the plan as implemented prior to implementation.
--- NOTE | 2018-03-17 15:48 | P.PN ---
Subjective Progress Note Date: 03/17/18 This is a 27-year-old female with history of seasonal ALLERGIES, asthma, depression, who presented to the hospital with symptoms of chest discomfort. She states that she developed a sharp pain underneath her left breast, she also felt the discomfort radiates up into her left shoulder area. She states she had an episode of vomiting and was mildly short of breath. Subsequent to that she again had similar symptoms, this time she states that she also noticed some numbness in her left upper arm going up her face into her head. For this reason she came to the emergency room for further evaluation. Patient does take control, she states that she started on at approximately 2 weeks ago. EKG on arrival here showed a normal sinus rhythm with no acute changes. CAT scan of the brain did not reveal any acute process. Chest x-ray does not reveal any acute process. CTA of the chest was performed which did not reveal any acute process, no evidence of pulmonary embolism. Blood pressure this morning 116/58, heart rate in the 60s, 97% on room air. White blood cell count 14.2 on admission, 13.7 this morning, hemoglobin 12.6, platelet count 279. Sodium 143, potassium 4.2, BUN 11, creatinine 0.6. Troponins have been negative 3, cholesterol 132, LDL 63, HDL 47, triglycerides 112. At the time of my examination this morning, patient complains of feeling extremely tired, she states it is difficult to keep her eyes open. Denies any chest pain at present, continues to have mild numbness of the left side of her neck up into the top of her head. 03/17/2018 Patient seen and examined this morning, denies any further chest discomfort, has hemodynamically been stable. Echocardiogram with Doppler study revealed a normal left ventricular systolic function. Right the brain did reveal numerous nonenhancing small high signal white matter lesions on T2 and FLAIR images suggestive of possible demyelinating disease. From cardiology's perspective, she is stable. Objective - Vital Signs Vital signs: Vital Signs Temp 98.2 F 03/17/18 07:55 Pulse 66 03/17/18 11:27 Resp 16 03/17/18 11:06 BP 130/65 03/17/18 11:06 Pulse Ox 99 03/17/18 11:06 Intake & Output 04/17/18 04/18/18 04/18/18 18:59 06:59 18:59 Intake Total 480 1100 700 Balance 480 1100 700 Weight 108.3 kg Intake: IV 1100 500 Magnesium Sulfate-D5w Pmx 100 1 gm In Dextrose/Water 1 100ml.bag @ 100 mls/hr IVPB ONCE ONE Rx#: [id number] Sodium Chloride 0.9% 1, 900 500 000 ml @ 100 mls/hr IV . Q10H [facility] Rx#:[id number] methylPREDNISolone SOD 100 SUCC 250 mg In Sodium Chloride 0.9% 100 ml @ 100 mls/hr IVPB Q8H [facility] Rx#:[id number] Oral 480 200 Other: Voiding Method Toilet # Voids 2 1 # Bowel Movements 0 - Exam PHYSICAL EXAMINATION: HEENT: [Head is atraumatic, normocephalic. Pupils equal, round. Neck is supple. There is no elevated jugular venous pressure.] HEART EXAMINATION: [Heart S1, S2 normal. No murmur or gallop heard.] CHEST EXAMINATION:[ Lungs are clear to auscultation and precussion. No chest wall tenderness is noted on palpation or with deep breathing.] ABDOMEN: [ Soft, nontender. Bowel sounds are heard. No organomegaly noted]. EXTREMITIES:[ 2+ peripheral pulses with no evidence of peripheral edema and no calf tenderness noted]. NEUROLOGIC [patient is awake, alert and oriented -3.] - Labs CBC & Chem 7: 03/16/18 06:42 03/16/18 06:42 Labs: Abnormal Lab Results - Last 24 Hours (Table) 03/16/18 Range/Units 06:42 C-Reactive Protein 24.6 H (<10.0) mg/L Microbiology - Last 24 Hours (Table) 03/15/18 19:35 Urine Culture - Preliminary Urine,Voided Gram Neg Bacilli Assessment and Plan Plan: Assessment and plan #1 atypical chest discomfort, troponins negative 3, EKG shows normal sinus rhythm with no acute changes. CTA negative for pulmonary embolism #2 left arm and facial numbness and tingling, CT of the brain negative. Doppler study pending. #3 history of depression #4 asthma #5 seasonal ALLERGIES #6 cardiac risk factors negative for hypertension, no diabetes, no hyperlipidemia, patient is a nonsmoker, she does state there is a history of coronary artery disease in her maternal grandmother. Plan Echocardiogram with Doppler study revealed normal left ventricular systolic function. From cardiology's perspective, patient may be able to be discharged home once cleared by neurology and primary. DNP note has been reviewed, I agree with a documented findings and plan of care. Patient was seen and examined.
--- NOTE | 2018-03-17 23:57 | DS ---
DISCHARGE SUMMARY DATE OF ADMISSION: 03/14/2018 DATE OF DISCHARGE: 03/17/2018 FINAL DIAGNOSES: 1. Acute demyelinating disorder of the brain, possible multiple sclerosis. Await further workup as an outpatient. 2. Polycystic ovarian syndrome. 3. Intermittent asthma. 4. Obesity, BMI 38.9. 5. Anxiety and depression, not otherwise specified. HOSPITAL COURSE: This patient presented with numbness in the left arm, left face, sharp pain in the left chest wall. MRI of the brain did show some demyelinating spots. The patient otherwise did have a chest CT negative for PE. Carotid Doppler is unremarkable. Carotid Doppler did not show any critical stenosis. The patient is seen by Dr. Mccullough. Patient did get IV steroids. Symptoms did improve significantly. The patient will follow up with Dr. Mccullough as an outpatient. The patient in the past apparently had a diagnosis it seems of possible MS and also did have a LP done. On examination, left arm weakness improved. Slight numbness of the left face. CONSULTATION: 1. Dr. Leach from Cardiology. 2. Dr. Mccullough from Neurology. HOME MEDICATIONS: 1. Lexapro 10 mg p.o. daily. 2. Ventolin HFA 1 or 2 puffs q.6h p.r.n. 3. Claritin 10 mg p.o. daily. 4. Singulair 10 mg p.o. daily. 5. Ortho Tri-Cyclen 1 tab p.o. daily. 6. Prednisone 50 mg p.o. daily. FOLLOWUP: Follow up with Dr. Yang on 03/22/2018. Follow up with Dr. Mccullough in 1 week. MMODL / IJN: [id number] /
== END 2018-03-17 17:50 | disposition home or self-care (01) | DRG 60 ==
LOC: EC 18:31 → 6SEL 22:07 → OBSVTOIN 03-17 13:24
PROVIDERS: ADMIT Hospitalist; ATTEND Hospitalist
DX: G35 Multiple sclerosis (principal); E28.2 Polycystic ovarian syndrome; E66.9 Obesity, unspecified; F41.9 Anxiety disorder, unspecified; F32.9 Major depressive disorder, single episode, unspecified; F42.9 Obsessive-compulsive disorder, unspecified; J45.20 Mild intermittent asthma, uncomplicated; N92.0 Excessive and frequent menstruation with regular cycle; F90.9 Attention-deficit hyperactivity disorder, unspecified type; R07.89 Other chest pain; R59.0 Localized enlarged lymph nodes; F12.90 Cannabis use, unspecified, uncomplicated; G43.109 Migraine with aura, not intractable, without status migrainosus; Z88.8 Allergy status to other drugs, medicaments and biological substances; Z79.899 Other long term (current) drug therapy; Z82.49 Family history of ischemic heart disease and other diseases of the circulatory system; Z88.1 Allergy status to other antibiotic agents; Z68.38 Body mass index [BMI] 38.0-38.9, adult; Z79.52 Long term (current) use of systemic steroids; Z81.8 Family history of other mental and behavioral disorders; Z81.3 Family history of other psychoactive substance abuse and dependence; Z90.49 Acquired absence of other specified parts of digestive tract; Z98.51 Tubal ligation status; Z87.442 Personal history of urinary calculi
CPT/HCPCS: 36415; 70450; 70543; 70553; 71046; 71275; 80048; 80053; 80061; 81001; 81025; 82306; 82550; 82553; 83735; 84100; 84484; 85025; 85610; 85652; 85730; 86140; 87077; 87086; 87186; 93005; 93306; 93880; 94760; 96361; 96365; 99285

== ENCOUNTER → 2018-03-29 | Outpatient (CLI) | payer BC ==
[2018-03-29 10:39] LABS: Basophils # (A) 0.1 k/uL (0-0.2); Basophils % (A) 0 %; Eosinophils # (A) 0.3 k/uL (0-0.7); Eosinophils % (A) 2 %; HCT 43.2 % (34.0-46.0); Lymphocytes # (A) 2.7 k/uL (1.0-4.8); Lymphocytes % (A) 20 %; MCH 27.4 pg (25.0-35.0); MCHC 32.4 g/dL (31.0-37.0); MCV 84.7 fL (80.0-100.0); Mean Platelet Volume 7.3; Monocytes # (A) 0.8 k/uL (0-1.0); Monocytes % (A) 6 %; Neutrophils # (A) 9.9 k/uL (1.3-7.7); Neutrophils % (A) 71 %; Platelet Count 331 k/uL (150-450); RDW 12.5 % (11.5-15.5)
[2018-03-29 10:54] LABS: ALT 27 U/L (9-52); AST 19 U/L (14-36); Albumin 4.1 g/dL (3.5-5.0); Alkaline Phosphatase 78 U/L (38-126); Anion Gap 12 mmol/L; Blood Urea Nitrogen 12 mg/dL (7-17); Calcium 9.7 mg/dL (8.4-10.2); Carbon Dioxide 26 mmol/L (22-30); Chloride 106 mmol/L (98-107); Glucose 93 mg/dL (74-99); Potassium 4.3 mmol/L (3.5-5.1); Sodium 144 mmol/L (137-145); Total Bilirubin 0.4 mg/dL (0.2-1.3); Total Protein 7.4 g/dL (6.3-8.2)
[2018-03-29 17:59] LABS: Hepatitis A Antibody IgM Non-Reactive (Non-Reactive); Hepatitis B Core IgM Non-Reactive (Non-Reactive)
[2018-04-01 14:19] LABS: IgG - CSF 2.1 mg/dL (0.0 - 3.4); IgG/Albumin Index (CSF) 0.44 (0.00 - 0.77)
== END | disposition home or self-care (01) ==
LOC: LABWHC1 10:05
PROVIDERS: ATTEND Nurse Practitioner Acute Care
DX: G35 Multiple sclerosis (principal); R74.8 Abnormal levels of other serum enzymes
CPT/HCPCS: 36415; 80053; 80074; 82040; 82042; 82784; 83916; 85025

== ENCOUNTER → 2018-04-08 | Outpatient (CLI) | payer BC ==
--- NOTE | 2018-04-08 21:25 | MR ---
EXAMINATION TYPE: MR lumbar spine wo con DATE OF EXAM: 04/08/2018 COMPARISON: CT chest abdomen and pelvis November 07, 2017 HISTORY: Lumbago per order. Low back pain for years into both legs per patient. TECHNIQUE: Multiplanar, multisequence imaging of the lumbar spine is performed without IV contrast. FINDINGS: Sagittal images of the lumbar spine show vertebral body heights and alignment to appear sat isfactory. The intervertebral discs demonstrate normal heights and hydration. No suspicious posterior disc herniations are present on sagittal images. The conus medullaris is slightly high in position ending inferior T12 level. No abnormal signal is seen. No suspicious clumping of lumbosacral nerve ro ots is noted. The bone marrow signal intensity is within normal limits. No significant spurring is pr esent. Axial images show no focal disc disease, or facet degenerative change at any lumbar level. There is no spinal canal stenosis, neural foraminal narrowing, or evidence of nerve root compromise. No suspic ious retroperitoneal findings are seen. Paraspinal muscle bulk is maintained. IMPRESSION: No significant finding is seen to account for patient's symptoms.
== END | disposition home or self-care (01) ==
LOC: RADMRIMAIN 18:18
PROVIDERS: ATTEND Psychiatry & Neurology Neurology
DX: M54.5 Low back pain (principal); Z88.1 Allergy status to other antibiotic agents; Z88.8 Allergy status to other drugs, medicaments and biological substances
CPT/HCPCS: 72148

== ENCOUNTER → 2018-04-28 | Outpatient (CLI) | payer BC ==
--- NOTE | 2018-04-28 10:26 | US ---
EXAMINATION TYPE: US thyroid st tissue head/neck DATE OF EXAM: 04/28/2018 COMPARISON: MRI 2018 CLINICAL HISTORY: Neck Mass R22.1 Bilateral. Enlarged lymph node seen on recent MRI Right neck: multiple hypoechoic vascular structures seen with largest measuring 2.7 x 1.0 x 1.8cm, pr obable lymph nodes Left neck: multiple hypoechoic vascular structures seen with largest measuring 1.6 x 0.8 x 1.5cm, pro bable lymph nodes IMPRESSION: 1. Submandibular lymph nodes, enlarged. If additional evaluation as part, CT of the neck w con be rec ommended.
== END | disposition home or self-care (01) ==
LOC: RADUSWWP 08:48
PROVIDERS: ATTEND Otolaryngology
DX: R59.0 Localized enlarged lymph nodes (principal); R49.0 Dysphonia
CPT/HCPCS: 76536

== ENCOUNTER → 2018-05-05 | Outpatient (CLI) | payer BC ==
[2018-05-05 19:17] LABS: Rheumatoid Factor 5 IU/mL (0-15)
[2018-05-06 04:56] LABS: Toxoplasma Antibody (IgG) <3.0 IU/mL (<7.2); Toxoplasma Antibody (IgM) <3.0 AU/mL (<8.0)
[2018-05-07 09:26] LABS: Lyme IgG/IgM 0.2 Index
== END | disposition home or self-care (01) ==
LOC: LABWHC1 14:33
PROVIDERS: ATTEND Otolaryngology
DX: R59.0 Localized enlarged lymph nodes (principal)
CPT/HCPCS: 36415; 86038; 86308; 86431; 86611; 86618; 86777; 86778

== ENCOUNTER 2018-05-18 08:23 | Day surgery (SDC) | payer BC ==
[2018-05-18 08:36] VITALS: BP 108/74; PULSE 81; RESP 20; TEMP 98.1
--- NOTE | 2018-05-18 13:45 | US ---
ULTRASOUND GUIDED FNA THYROID BIOPSY: CLINICAL HISTORY: Neck lymphadenopathy FINDINGS: The procedure was explained to the patient. The risks, complications, benefits and alternatives were discussed and any questions were answered. Informed consent was obtained. Patient was placed supin e on the ultrasound table and prepped and draped in the usual sterile fashion. Utilizing a 25 gauge needle, five passes were made into the right-sided lymph node. Note is made into these exam the shor t axis of the left lymph node measured only 8 mm. This is not pathologic and the biopsy was deferred. Patient was stable throughout the procedure. Pathology is pending. All elements of maximal barrier technique were utilized. IMPRESSION: 1. Successful ultrasound guided FNA biopsy right neck lymph node.
== END 2018-05-18 09:45 | disposition home or self-care (01) ==
LOC: RADPROMAIN 08:23
PROVIDERS: ATTEND Otolaryngology
DX: R59.0 Localized enlarged lymph nodes (principal); G35 Multiple sclerosis; J45.909 Unspecified asthma, uncomplicated; F32.9 Major depressive disorder, single episode, unspecified; G43.909 Migraine, unspecified, not intractable, without status migrainosus; Z79.3 Long term (current) use of hormonal contraceptives; Z79.899 Other long term (current) drug therapy; Z91.013 Allergy to seafood; Z91.048 Other nonmedicinal substance allergy status
CPT/HCPCS: 10022; 76942; 88173; 88305

== ENCOUNTER → 2018-07-19 | Outpatient (CLI) | payer BC, OTHER ==
--- NOTE | 2018-07-19 11:17 | US ---
EXAMINATION TYPE: US thyroid st tissue head/neck DATE OF EXAM: 07/19/2018 COMPARISON: Neck ultrasound April 28, 2018 CLINICAL HISTORY: R22.1 Neck Mass. Bilateral neck lymph nodes, history of FNA Right neck submandibular: 2.1 x 0.6 x 1.6cm hypoechoic vascular structure, probable lymph node. Left neck submandibular: possible bilobed vs. 2 separate hypoechoic vascular structures measuring 1.7 x 0.9 x 1.7cm and 1.5 x 0.8 x 1.7cm, probable lymph nodes. IMPRESSION: Redemonstration of prominent bilateral submandibular lymph nodes remaining subcentimeter on short axis. No significant change from prior ultrasound.
== END | disposition home or self-care (01) ==
LOC: RADUSWWP 10:32
PROVIDERS: ATTEND Otolaryngology
DX: R22.1 Localized swelling, mass and lump, neck (principal)
CPT/HCPCS: 76536

== ENCOUNTER 2018-07-20 13:05 | Emergency (ER) | payer OTHER ==
[2018-07-20 13:23] VITALS: BP 109/80; PULSE 93; RESP 18; TEMP 98.3
[2018-07-20 15:27] LABS: Basophils # (A) 0.1 k/uL (0-0.2); Basophils % (A) 0 %; Eosinophils # (A) 0.4 k/uL (0-0.7); Eosinophils % (A) 3 %; HGB 13.7 gm/dL (11.4-16.0); Lymphocytes # (A) 2.1 k/uL (1.0-4.8); Lymphocytes % (A) 15 %; MCH 28.8 pg (25.0-35.0); MCHC 32.7 g/dL (31.0-37.0); MCV 88.1 fL (80.0-100.0); Monocytes # (A) 0.6 k/uL (0-1.0); Monocytes % (A) 4 %; Neutrophils # (A) 10.9 k/uL (1.3-7.7); Neutrophils % (A) 77 %; Platelet Count 318 k/uL (150-450); RBC 4.76 m/uL (3.80-5.40); WBC 14.2 k/uL (3.8-10.6)
[2018-07-20 15:32] LABS: Appearance,Urine Cloudy (Clear); Bilirubin,Urine Negative (Negative); Blood,Urine Large (Negative); Calcium Oxalate Crystals,Urine Few /hpf; Color,Urine Yellow; Glucose,Urine (UA) Negative (Negative); Ketones,Urine Negative (Negative); Leukocyte Esterase,Urine Negative (Negative); Mucus,Urine Moderate /hpf; Nitrite,Urine Negative (Negative); PH, Urine 5.5 (5.0-8.0); Protein,Urine 1+ (Negative); RBC,Urine >182 /hpf (0-5); Squamous Epithelial Cell,Urine 5 /hpf (0-4); Urobilinogen,Urine <2.0 mg/dL (<2.0); WBC,Urine 6 /hpf (0-5)
[2018-07-20 15:38] LABS: ALT 32 U/L (9-52); AST 26 U/L (14-36); Alkaline Phosphatase 60 U/L (38-126); Amylase 44 U/L (30-110); Anion Gap 8 mmol/L; Blood Urea Nitrogen 8 mg/dL (7-17); Calcium 9.5 mg/dL (8.4-10.2); Carbon Dioxide 23 mmol/L (22-30); Chloride 107 mmol/L (98-107); Glucose 84 mg/dL (74-99); Lipase 105 U/L (23-300); Potassium 4.1 mmol/L (3.5-5.1); Sodium 138 mmol/L (137-145); Total Bilirubin 0.5 mg/dL (0.2-1.3); Total Protein 7.2 g/dL (6.3-8.2)
[2018-07-20] MEDS ORDERED: CEPHALEXIN 500 MG CAP PO STA (15:51)
--- NOTE | 2018-07-20 15:53 | ED ---
General Adult HPI - General Chief complaint: Abdominal Pain Stated complaint: Abd.pain/17wks Time Seen by Provider: 07/20/18 15:41 Source: patient, RN notes reviewed, old records reviewed Mode of arrival: ambulatory Limitations: no limitations - History of Present Illness Initial comments: 28 yo female presenting with lower abdominal pain and bilateral flank pain. Patient is currently 17 weeks . She is . She's had no, locations with this . Symptoms have been present for the past 24 hours. She was encouraged by her CELL POURER to present to the emergency department for evaluation of abdominal pain. Pain is constant, bilateral lower pain and bilateral flank pain. No dysuria or hematuria. No vaginal bleeding. No vaginal discharge. Patient has had some nausea, no vomiting. No diarrhea. She believes she may be constipated as well. Patient has chronic medical problems including asthma and migraine headache. Patient does have history of kidney stones and states that she passed 2 stones in the past several weeks. - Related Data Home Medications Medication Instructions Recorded Confirmed Albuterol Inhaler [Ventolin Hfa 1 - 2 puff INHALATION RT-Q6H PRN 09/21/17 Inhaler] Acetaminophen [Tylenol] 325 mg PO Q4H PRN 07/20/18 07/20/18 Pnv,Calcium 72/Iron/Folic Acid 1 tab PO DAILY 07/20/18 07/20/18 [ Plus Tablet] Previous Rx's Medication Instructions Recorded Escitalopram [Lexapro] 10 mg PO DAILY #30 tab 07/17/17 Allergies Allergy/AdvReac Type Severity Reaction Status Date / Time doxycycline AdvReac Rash/Hives Verified 07/20/18 15:37 sumatriptan [From Imitrex] AdvReac Unknown Verified 07/20/18 15:37 Review of Systems ROS Statement: Those systems with pertinent positive or pertinent negative responses have been documented in the HPI. ROS Other: All systems not noted in ROS Statement are negative. Past Medical History Past Medical History: Asthma Additional Past Medical History / Comment(s): KIDNEY STONES. migraine headache. PCOS. heavy menses History of Any Multi-Drug Resistant Organisms: None Reported Past Surgical History: Cholecystectomy Additional Past Surgical History / Comment(s): D AND C and left tube removed due to ectopic tubal Additional Past Anesthesia/Blood Transfusion Reaction / Comment(s): anesthesia reaction: major n/V and becomes agitated and severe headache Past Psychological History: Anxiety, Depression Smoking Status: Never smoker Past Alcohol Use History: None Reported Past Drug Use History: Marijuana - Past Family History father Additional Family Medical History / Comment(s): drug abuse, and of massive heart attack thought to be related to drug overdose mother Additional Family Medical History / Comment(s): bipolar disorder General Exam Limitations: no limitations General appearance: alert, in no apparent distress Head exam: Present: atraumatic, normocephalic Eye exam: Present: normal appearance, PERRL ENT exam: Present: normal exam Neck exam: Present: normal inspection. Absent: tenderness, meningismus Respiratory exam: Present: normal lung sounds bilaterally. Absent: respiratory distress, wheezes Cardiovascular Exam: Present: regular rate, normal rhythm GI/Abdominal exam: Present: soft, tenderness (Mild bilateral lower abdominal tenderness). Absent: distended External exam: Present: normal external exam. Absent: erythema, swelling Speculum exam: Present: normal speculum exam. Absent: erythema, vaginal discharge, cervical discharge, vaginal bleeding Extremities exam: Present: normal inspection, full ROM Back exam: Present: normal inspection, full ROM Neurological exam: Present: alert, oriented X3. Absent: motor sensory deficit Psychiatric exam: Present: normal affect, normal mood Skin exam: Present: warm, dry, intact. Absent: cyanosis, diaphoretic Course Vital Signs 07/20/18 13:19 Temperature 98.3 F Pulse Rate 93 Respiratory 18 Rate Blood Pressure 109/80 O2 Sat by Pulse 99 Oximetry Medical Decision Making - Medical Decision Making 28 yo female presenting with lower abdominal pain and bilateral flank pain. Patient has passed several kidney stones over the past several weeks. She has history of kidney stones. She denies dysuria. Denies fever. Denies vomiting. Patient's abdomen is soft with mild lower tenderness. No rebound or guarding. No vaginal bleeding. Patient has mildly elevated white blood cell count of 14.2, stable hemoglobin, normal CMP, urinalysis is positive for greater than 182 red cells, only 6 wbc's, there is calcium oxalate crystals as well this is consistent with kidney stone. Urine culture is obtained. Patient is started on prophylactic antibiotics given the likelihood a stone in her current status. Case is discussed with Dr. Saldivar, who is covering for the patient's CELL POURER. She does advise Tylenol and Tylenol 3 for pain. Recommends repeat presenting to the emergency department with worsening symptoms. Patient has follow-up tomorrow in the office. Patient declines Tylenol 3. She prefers to take just Tylenol. - Lab Data Result diagrams: 07/20/18 15:12 07/20/18 15:12 Lab Results 07/20/18 07/20/18 07/20/18 Range/Units 15:12 15:12 15:12 WBC 14.2 H (3.8-10.6) k/uL RBC 4.76 (3.80-5.40) m/uL Hgb 13.7 (11.4-16.0) gm/dL Hct 42.0 (34.0-46.0) % MCV 88.1 (80.0-100.0) fL MCH 28.8 (25.0-35.0) pg MCHC 32.7 (31.0-37.0) g/dL RDW 13.0 (11.5-15.5) % Plt Count 318 (150-450) k/uL Neutrophils % 77 % Lymphocytes % 15 % Monocytes % 4 % Eosinophils % 3 % Basophils % 0 % Neutrophils # 10.9 H (1.3-7.7) k/uL Lymphocytes # 2.1 (1.0-4.8) k/uL Monocytes # 0.6 (0-1.0) k/uL Eosinophils # 0.4 (0-0.7) k/uL Basophils # 0.1 (0-0.2) k/uL Sodium 138 (137-145) mmol/L Potassium 4.1 (3.5-5.1) mmol/L Chloride 107 (98-107) mmol/L Carbon Dioxide 23 (22-30) mmol/L Anion Gap 8 mmol/L BUN 8 (7-17) mg/dL Creatinine 0.52 (0.52-1.04) mg/dL Est GFR (CKD-EPI)AfAm >90 (>60 ml/min/1.73 sqM) Est GFR (CKD-EPI)NonAf >90 (>60 ml/min/1.73 sqM) Glucose 84 (74-99) mg/dL Calcium 9.5 (8.4-10.2) mg/dL Total Bilirubin 0.5 (0.2-1.3) mg/dL AST 26 (14-36) U/L ALT 32 (9-52) U/L Alkaline Phosphatase 60 (38-126) U/L Total Protein 7.2 (6.3-8.2) g/dL Albumin 4.0 (3.5-5.0) g/dL Amylase 44 (30-110) U/L Lipase 105 (23-300) U/L Urine Color Yellow Urine Appearance Cloudy H (Clear) Urine pH 5.5 (5.0-8.0) Ur Specific [place] 1.020 (1.001-1.035) Urine Protein 1+ H (Negative) Urine Glucose (UA) Negative (Negative) Urine Ketones Negative (Negative) Urine Blood Large H (Negative) Urine Nitrite Negative (Negative) Urine Bilirubin Negative (Negative) Urine Urobilinogen <2.0 (<2.0) mg/dL Ur Leukocyte Esterase Negative (Negative) Urine RBC >182 H (0-5) /hpf Urine WBC 6 H (0-5) /hpf Ur Squamous Epith Cells 5 H (0-4) /hpf Calcium Oxalate Crystal Few H (None) /hpf Urine Mucus Moderate H (None) /hpf Disposition Clinical Impression: Renal stone, UTI (urinary tract infection) Disposition: HOME SELF-CARE Condition: Good Instructions: Urinary Tract Infection in (ED), Kidney Stones (ED) Is patient prescribed a controlled substance at d/c from ED?: No Referrals: Rogelio Yang MD [Primary Care Provider] - 1-2 days Abdias Mukherjee DO [Doctor of Osteopathic Medicine] - 1-2 days Time of Disposition: 16:50
[2018-07-20] MEDS ORDERED: SODIUM CHLORIDE 0.9% 1,000 ML IV ONE (15:59)
== END 2018-07-20 17:08 | disposition home or self-care (01) ==
LOC: EC 13:05
DX: O23.42 Unspecified infection of urinary tract in pregnancy, second trimester (principal); O99.89 Other specified diseases and conditions complicating pregnancy, childbirth and the puerperium; N20.0 Calculus of kidney; Z90.49 Acquired absence of other specified parts of digestive tract; Z90.79 Acquired absence of other genital organ(s); Z88.1 Allergy status to other antibiotic agents; Z3A.17 17 weeks gestation of pregnancy
CPT/HCPCS: 36415; 80053; 81001; 82150; 83690; 85025; 86850; 86900; 86901; 87086; 96360; 99284

== ENCOUNTER → 2018-08-27 | Outpatient (CLI) | payer OTHER ==
[2018-08-27 12:03] LABS: HCT 38.1 % (34.0-46.0); HGB 12.5 gm/dL (11.4-16.0); MCH 29.2 pg (25.0-35.0); MCHC 32.9 g/dL (31.0-37.0); MCV 88.7 fL (80.0-100.0); Mean Platelet Volume 6.9; Platelet Count 269 k/uL (150-450); RBC 4.29 m/uL (3.80-5.40); WBC 14.4 k/uL (3.8-10.6)
== END | disposition home or self-care (01) ==
LOC: LABWHC1 10:14
PROVIDERS: ATTEND Obstetrics & Gynecology
DX: Z34.82 Encounter for supervision of other normal pregnancy, second trimester (principal); Z3A.00 Weeks of gestation of pregnancy not specified
CPT/HCPCS: 36415; 82950; 85027

== ENCOUNTER 2018-09-19 20:32 | Outpatient (CLI) | payer OTHER ==
[2018-09-19] MEDS ORDERED: ACETAMINOPHEN TAB 325 MG TAB PO STA (21:10)
[2018-09-19 21:16] VITALS: RESP 18; TEMP 98.4
[2018-09-19 21:33] LABS: Basophils # (A) 0.1 k/uL (0-0.2); Basophils % (A) 0 %; Eosinophils # (A) 0.4 k/uL (0-0.7); Eosinophils % (A) 3 %; HGB 12.5 gm/dL (11.4-16.0); Lymphocytes # (A) 2.5 k/uL (1.0-4.8); Lymphocytes % (A) 17 %; MCH 29.5 pg (25.0-35.0); MCHC 33.7 g/dL (31.0-37.0); MCV 87.7 fL (80.0-100.0); Mean Platelet Volume 7.5; Monocytes # (A) 0.7 k/uL (0-1.0); Monocytes % (A) 5 %; Neutrophils % (A) 74 %; Platelet Count 283 k/uL (150-450); RBC 4.22 m/uL (3.80-5.40); RDW 13.2 % (11.5-15.5); WBC 14.9 k/uL (3.8-10.6)
[2018-09-19 21:45] LABS: ALT 33 U/L (9-52); AST 19 U/L (14-36); Blood Urea Nitrogen 10 mg/dL (7-17); LDH 381 U/L (313-618); Uric Acid 3.9 mg/dL (3.7-7.4)
[2018-09-19 21:52] LABS: Appearance,Urine Cloudy (Clear); Bacteria,Urine Rare /hpf; Bilirubin,Urine Negative (Negative); Blood,Urine Negative (Negative); Calcium Oxalate Crystals,Urine Few /hpf; Color,Urine Yellow; Glucose,Urine (UA) Negative (Negative); Ketones,Urine Trace (Negative); Leukocyte Esterase,Urine Trace (Negative); Mucus,Urine Few /hpf; Nitrite,Urine Negative (Negative); Protein,Urine 1+ (Negative); RBC,Urine 6 /hpf (0-5); Specific Gravity,Urine 1.023 (1.001-1.035); Squamous Epithelial Cell,Urine 7 /hpf (0-4); Urobilinogen,Urine <2.0 mg/dL (<2.0); WBC,Urine 7 /hpf (0-5)
[2018-09-19 22:03] VITALS: BP 112/71; PULSE 99
--- NOTE | 2018-09-27 09:09 | P.MSEPDOC ---
Presenting Problems - Arrival Data Date of Arrival on Unit: 09/19/18 Time of Arrival on Unit: 20:35 Mode of Transport: Ambulatory - Complaint OB-Reason for Admission/Chief Complaint: Headache, Observation/Evaluation Comment: CRISOSTOMO all day, getting worse Medical History - Information : 4 Para: 1 Term: 1 : 0 Abortions: Spontaneous or Elective: 0 Number of Living Children: 1 - Gestational Age Gestational Age by FRANCO (wks/days): 26 Weeks and 2 Days Review of Systems - Review of Systems Constitutional: No problems Breast: No problems ENT: No problems Cardiovascular: No problems Respiratory: No problems Gastrointestinal: No problems Genitourinary: No problems Musculoskeletal: No problems Neurological: Dizziness Skin: No problems Vital Signs - Temperature Temperature: 98.4 F Temperature Source: Temporal Artery Scan - Pulse Right Pulse Rate: 99 Pulse Assessment Method: Pulse Oximetry - Respirations Respiratory Rate: 18 - Blood Pressure Right Arm Blood Pressure: 112/71 Blood Pressure Mean: 84 Blood Pressure Source: Automatic Cuff Medical Screen Scoring (Pre) - Cervical Exam Dilation: Exam Deferred Effacement: Exam Deferred - Uterine Contractions Frequency: N/A Duration: N/A Intensity: N/A - Maternal Vital Signs Maternal Temperature: N/A Signs of Preeclampsia: Headache = 1, Nausea/Vomiting = 1, Visual Disturbance = 1 Maternal Respirations: N/A - Pain Assessment Pain Location and Character: Head Pain Scale Used: Numeric (1 - 10) Pain Intensity: 7 Pain Management Goal: 3 Pain Description: *Acute, Sore, Throbbing Pain Radiation Location: shoulders Pain Frequency: Constant Pain Duration: 10 Pain Duration Units: Hours Pain Behavior: Vocalization Pain Aggravating Factors: None Pharmacological Interventions: PRN Medication Non-Pharmacological Interventions: Position/Reposition - Assessment Baseline FHR: 155 Heart Rate - NICHD Category: Category I (Normal) = 0 NST: Reactive Position: N/A Station: N/A - Total Score Total Score (Pre): 3 - Level of Risk Level of Risk: Low (0-5) Physician Notification (Pre) - Physician Notified Physician Notified Date: 09/19/18 Physician Notified Time: 21:06 Physician/Practitioner Notifed:: Dr Saldivar - Notification Comment Comment: reported on pts c/o CRISOSTOMO all day, some dizziness, nausea and blurred vision, none of that currently happening. reported on vitals, fhts, no cntrx/ abd pain/bleeding/leaking. reported on pt had CRISOSTOMO earlier this week and was seen at office, with f/u appt scheduled for 10/01. no hx PIH or BP. orders to PIH labs , send UA, give tylenol now x1, warm blanket for pts neck. call with results. Medical Screen Scoring (Post) - Cervical Exam Dilation: Exam Deferred Effacement: Exam Deferred - Uterine Contractions Frequency: N/A Duration: N/A - Maternal Vital Signs Maternal Temperature: N/A Maternal Blood Pressure: N/A Signs of Preeclampsia: Headache = 1 Maternal Respirations: N/A - Pain Assessment Pain Location and Character: Head Pain Scale Used: Numeric (1 - 10) Pain Intensity: 7 Pain Management Goal: 3 - Assessment Heart Rate: 155 Heart Rate - NICHD Category: Category I (Normal) = 0 NST: Reactive Position: N/A - Total Score Total Score (Post): 1 - Post Treatment Level of Risk Post Treatment Level of Risk: Low (0-5) Physician Notification (Post) - Physician Notified Physician Notified Date: 09/19/18 Physician Notified Time: 21:59 Physician/Practitioner Notified:: Dr Saldivar - Notification Comment Comment: reported on lab results, vitals, fhts, still no cntrx or labor s/sx. orders to d/c home at this time, may take benadryl tonight, claritin in am, tylenol as directed. return with worsening sx, or call office in am to see Dr Mukherjee earlier if needed. Disposition - Disposition OB Disposition: Discharge to home Discharge Date: 09/19/18 Discharge Time: 22:10 I agree with the RN Medical Screening Exam: Yes Risk & Benefit of care provided described in d/c instruction: Yes Diagnosis: HEADACHE
== END 2018-09-19 22:10 | disposition home or self-care (01) ==
LOC: FBPOP 20:32
PROVIDERS: ATTEND Obstetrics & Gynecology
DX: O26.892 Other specified pregnancy related conditions, second trimester (principal); R51 Headache; Z3A.26 26 weeks gestation of pregnancy
CPT/HCPCS: 82565; 83615; 84450; 84460; 84520; 84550; 85025; 81001; G0463; 99215

== ENCOUNTER 2018-11-09 18:45 | Outpatient (CLI) | payer OTHER ==
[2018-11-09 19:40] LABS: Appearance,Urine Cloudy (Clear); Bilirubin,Urine Negative (Negative); Blood,Urine Negative (Negative); Calcium Oxalate Crystals,Urine Few /hpf; Color,Urine Yellow; Glucose,Urine (UA) Negative (Negative); Ketones,Urine Trace (Negative); Leukocyte Esterase,Urine Negative (Negative); Mucus,Urine Rare /hpf; Nitrite,Urine Negative (Negative); Protein,Urine Trace (Negative); RBC,Urine 2 /hpf (0-5); Specific Gravity,Urine 1.021 (1.001-1.035); Squamous Epithelial Cell,Urine 1 /hpf (0-4); WBC,Urine 1 /hpf (0-5)
[2018-11-09 20:04] VITALS: BP 127/80; PULSE 90; RESP 16; TEMP 98.8
--- NOTE | 2018-11-10 06:34 | P.MSEPDOC ---
Presenting Problems - Arrival Data Date of Arrival on Unit: 11/09/18 Time of Arrival on Unit: 18:40 Mode of Transport: Ambulatory - Complaint OB-Reason for Admission/Chief Complaint: Headache, Visual Disturbances Medical History - Information : 4 Para: 1 Term: 1 : 0 Abortions: Spontaneous or Elective: 0 Number of Living Children: 1 - Gestational Age Gestational Age by FRANCO (wks/days): 33 Weeks and 4 Days Review of Systems - Review of Systems Constitutional: No problems Breast: No problems ENT: No problems Cardiovascular: No problems Respiratory: No problems Gastrointestinal: No problems Genitourinary: No problems Musculoskeletal: No problems Neurological: No problems Skin: No problems Vital Signs - Temperature Temperature: 98.8 F Temperature Source: Tympanic - Pulse Right Brachial Pulse Rate: 90 Pulse Assessment Method: Automatic Cuff - Respirations Respiratory Rate: 16 Oxygen Delivery Method: Room Air - Blood Pressure Right Arm Blood Pressure: 127/80 Blood Pressure Mean: 95 Blood Pressure Source: Automatic Cuff Medical Screen Scoring (Pre) - Cervical Exam Dilation: 1-3 cm = 1 Membranes: Intact - Uterine Contractions Frequency: > 5 minutes apart = 1 Duration: N/A Intensity: N/A - Maternal Vital Signs Maternal Temperature: N/A Maternal Blood Pressure: N/A Signs of Preeclampsia: Headache = 1, Visual Disturbance = 1 Maternal Respirations: N/A - Maternal Trauma Maternal Trauma: N/A - Assessment Baseline FHR: 155 Heart Rate - NICHD Category: Category I (Normal) = 0 NST: Reactive Position: N/A Station: N/A - Total Score Total Score (Pre): 4 - Level of Risk Level of Risk: Low (0-5) Physician Notification (Pre) - Physician Notified Physician Notified Date: 11/09/18 Physician Notified Time: 19:40 Physician/Practitioner Notifed:: Dr. Bolden Spoke With: Dr. Bolden New Order Received: Yes - Notification Comment Comment: d/c home Disposition - Disposition OB Disposition: Discharge to home Discharge Date: 11/09/18 Discharge Time: 20:03 I agree with the RN Medical Screening Exam: Yes Risk & Benefit of care provided described in d/c instruction: Yes Diagnosis: EPISODIC TENSION-TYPE HEADACHE, NOT INTRACTABLE (Patient presented with complaints of headache.'s appears to be chronic in etiology and has been having throughout the . Blood pressure was normal. There is no evidence of maternal compromise. Patient is discharged home to follow-up as scheduled.)
== END 2018-11-09 20:05 | disposition home or self-care (01) ==
LOC: FBPOP 18:45
PROVIDERS: ATTEND Obstetrics & Gynecology
DX: O99.353 Diseases of the nervous system complicating pregnancy, third trimester (principal); G44.219 Episodic tension-type headache, not intractable; Z3A.33 33 weeks gestation of pregnancy
CPT/HCPCS: 59025; 81001; G0463; 99213

== ENCOUNTER 2018-12-14 12:08 | Inpatient (IN) | payer OTHER ==
[2018-12-14] MEDS ORDERED: TERBUTALINE 1 MG/ML VIAL SQ PRN (12:35)
[2018-12-14] MEDS ORDERED: CARBOPROST TROMETHAMINE 250 MCG/ML 1 ML AMP IM PRN (12:35)
[2018-12-14] MEDS ORDERED: METHYLERGONOVINE 0.2 MG/ML 1 ML AMP IM PRN (12:35)
[2018-12-14] MEDS ORDERED: LIDOCAINE 0.5% (PF) 5 MG/ML (50 ML SDV) SQ PRN (12:35)
[2018-12-14] MEDS ORDERED: OXYTOCIN 10 UNIT/ML 1 ML VIAL IM PRN (12:35)
[2018-12-14] MEDS ORDERED: AMPICILLIN 2,000 MG in SODIUM CHLORIDE 0.9% 100 ML IVPB STA (12:38)
[2018-12-14] MEDS ORDERED: OXYTOCIN 20 UNITS/1000 ML NS 1,000 ML IV SCH (12:45)
[2018-12-14 12:49] LABS: Basophils % (A) 0 %; Eosinophils # (A) 0.2 k/uL (0-0.7); Eosinophils % (A) 2 %; HCT 41.6 % (34.0-46.0); Lymphocytes # (A) 2.1 k/uL (1.0-4.8); Lymphocytes % (A) 16 %; MCH 29.3 pg (25.0-35.0); MCHC 33.6 g/dL (31.0-37.0); MCV 87.1 fL (80.0-100.0); Monocytes # (A) 0.5 k/uL (0-1.0); Monocytes % (A) 4 %; Neutrophils % (A) 76 %; Platelet Count 265 k/uL (150-450); RBC 4.77 m/uL (3.80-5.40); RDW 13.3 % (11.5-15.5); WBC 13.1 k/uL (3.8-10.6)
[2018-12-14] MEDS: LACTATED RINGERS 1,000 ML IV SCH (12:53)
[2018-12-14 13:50] VITALS: BMI 37.8
[2018-12-14] MEDS ORDERED: AMPICILLIN 1,000 MG in SODIUM CHLORIDE 0.9% 50 ML IVPB SCH (16:36)
[2018-12-14] MEDS ORDERED: BUTORPHANOL 1 MG/ML 1 ML VIAL IV PRN (17:53)
[2018-12-14] MEDS ORDERED: diphenhydrAMINE 50 MG CAP PO PRN (19:47)
[2018-12-14] MEDS ORDERED: LANOLIN CREAM 5 GM TUBE TOPICAL PRN (19:47)
[2018-12-14] MEDS ORDERED: WITCH HAZEL 1 EACH MED..PAD TOPICAL PRN (19:47)
[2018-12-14] MEDS ORDERED: diphenhydrAMINE 25 MG CAP PO PRN (19:47)
[2018-12-14] MEDS ORDERED: HYDROCORTISONE 2.5% RECTAL CREAM 30 GM TUBE RECTAL PRN (19:47)
[2018-12-14] MEDS ORDERED: ZOLPIDEM 5 MG TAB PO PRN (19:47)
[2018-12-14] MEDS ORDERED: BENZOCAINE/MENTHOL SPRAY 1 GM/SPRAY AEROSOL TOPICAL PRN (19:47)
[2018-12-14] MEDS ORDERED: diphenhydrAMINE 50 MG/ML 1 ML VIAL IVP PRN ×2 (19:47)
[2018-12-14] MEDS ORDERED: SIMETHICONE 80 MG CHEWABLE PO PRN (19:47)
--- NOTE | 2018-12-14 19:50 | P.HPOB ---
History of Present Illness H&P Date: 12/14/18 Chief Complaint: Spontaneous rupture membranes Gabbie is a 28-year-old at 38 weeks gestation who ryes complaining of spontaneous rupture membranes. She was seen in the office and a sterile spec exam was done with positive nitrazine and ferning. She was sent for admission and IV and robotic due to positive group B strep status. Her course otherwise was significant for headaches but otherwise unremarkable. Pertinent labs O+ blood type Rh and was negative, rubella immune, hepatitis B surface antigen/RPR/HIV were all negative GBS positive Will plan augmentation of labor as necessary with Pitocin further rupture of membranes was performed and clear fluid is noted. All questions are answered for her at this time and at this time she is not anticipate use of any epidural or other analgesics. Past Medical History Past Medical History: Asthma Additional Past Medical History / Comment(s): KIDNEY STONES. migraine headache. PCOS. heavy menses History of Any Multi-Drug Resistant Organisms: None Reported Past Surgical History: Cholecystectomy Additional Past Surgical History / Comment(s): D AND C and left tube removed due to ectopic tubal Past Anesthesia/Blood Transfusion Reactions: Postoperative Nausea & Vomiting ( PONV) Additional Past Anesthesia/Blood Transfusion Reaction / Comment(s): anesthesia reaction: major n/V and becomes agitated and severe headache Past Psychological History: Anxiety, Depression Additional Psychological History / Comment(s): ocd Smoking Status: Never smoker Past Alcohol Use History: None Reported Additional Past Alcohol Use History / Comment(s): 1-2 drinks at a time, once or twice a month Past Drug Use History: Marijuana - Past Family History father Additional Family Medical History / Comment(s): drug abuse, and of massive heart attack thought to be related to drug overdose mother Additional Family Medical History / Comment(s): bipolar disorder Medications and Allergies Home Medications Medication Instructions Recorded Confirmed Type Albuterol Inhaler [Ventolin Hfa 1 - 2 puff INHALATION RT-Q6H PRN 09/21/17 History Inhaler] Acetaminophen [Tylenol] 325 mg PO Q4H PRN 07/20/18 12/14/18 History Pnv,Calcium 72/Iron/Folic Acid 1 tab PO DAILY 07/20/18 12/14/18 History [ Plus Tablet] Allergies Allergy/AdvReac Type Severity Reaction Status Date / Time doxycycline AdvReac Rash/Hives Verified 12/14/18 12:33 sumatriptan [From Imitrex] AdvReac Unknown Verified 12/14/18 12:33 Exam Osteopathic Statement: *. No significant issues noted on an osteopathic structural exam other than those noted in the History and Physical/Consult. Vital Signs Temp Pulse Resp BP Pulse Ox 12/14/18 12:32 97.4 F L 77 16 124/79 99 Intake and Output 12/14/18 12/14/18 12/14/18 06:59 14:59 22:59 Intake Total 100 Balance 100 Intake: Intake, IV Titration 100 Amount Ampicillin 2,000 mg In 100 Sodium Chloride 0.9% 100 ml @ 200 mls/hr IVPB ONCE STA Rx#:[id number] Other: Weight 106.141 kg - OBG Physical Exam Breast: both: normal (no masses) Abdomen: bowel sounds normal, no diffuse tenderness, no bruit present, no guarding noted, no hepatomegaly, no splenomegaly, no mass Vulva: both: normal Vagina: normal moisture, no discharge Cervix: no lesion, no discharge Uterus: normal size, normal contour Adnexa: both: normal Anus/Rectum: normal perianal skin, no rectal mass, no hemorrhoids, heme negative Results Result Diagrams: 12/14/18 11:30 Abnormal Lab Results - Last 24 Hours (Table) 12/14/18 Range/Units 11:30 WBC 13.1 H (3.8-10.6) k/uL Neutrophils # 10.0 H (1.3-7.7) k/uL
--- NOTE | 2018-12-14 19:53 | P.PROBDLV ---
Vaginal Delivery Note - . Vaginal Delivery Note: Patient progressed complete and pushed with spontaneous vaginal delivery of a viable male over an intact perineum. Following delivery of the head patient began retracting up in bed most 18 inches away from the and began to bring her legs together. We were able to try and get her somewhat relaxed and continued to push with delivery of the anterior shoulder with gentle downward traction followed by the posterior shoulder and the remainder the baby. Mouth nares were then bulb suctioned and baby was placed on mother's abdomen where the umbilical cord was clamped cut usual fashion an nursery personnel was present to some care. Placenta was then delivered intact Pitocin was added to the IV. scores were 8 and 9 at one and 5 minutes respectively and weight was 8 lbs. 1 oz. Her some questionably sponge myself at this time of delivery due to the rapid lowering of the right shoulder at the time of delivery there may be some risk for clavicle fracture but is not palpate as such at this time. We'll have target man monitor this or reevaluate this former 30. However baby is moving both arms well and the predominant reason for the possibility was that she continue to move up the bed away from me as we were trying to deliver the anterior shoulder. Baby was delivered from left occiput anterior position. Both mother and baby are stable following delivery.
[2018-12-14] MEDS: ACETAMINOPHEN TAB 325 MG TAB PO PRN (20:38)
[2018-12-15] MEDS ORDERED: DIPH,PERTUS(ACELL)TETVAC-LF 0.5 ML VIAL IM ONE (05:45)
[2018-12-15] MEDS: SENNOSIDES-DOCUSATE SODIUM 1 EACH TAB PO SCH ×3 (05:47→19:42)
[2018-12-15] MEDS: ACETAMINOPHEN TAB 325 MG TAB PO PRN (06:38)
--- NOTE | 2018-12-15 13:29 | P.DS ---
Providers Date of admission: 12/14/18 12:08 Expected date of discharge: 12/15/18 Attending physician: Abdias Mukherjee Primary care physician: Abdias Mukherjee - Discharge Diagnosis(es) (1) Normal vaginal delivery Current Visit: Yes Status: Acute Hospital Course: PT presented in labor. Underwent normal vaginal delivery. She had an uncomplicated course and will be discharged PPD #1 Plan - Discharge Summary New Discharge Prescriptions: New Ibuprofen [Motrin] 600 mg PO Q6HR PRN #30 tab PRN Reason: Mild Pain Or Fever >= 100.5 No Action Albuterol Inhaler [Ventolin Hfa Inhaler] 1 - 2 puff INHALATION RT-Q6H PRN PRN Reason: Shortness Of Breath Acetaminophen [Tylenol] 325 mg PO Q4H PRN PRN Reason: Pain Pnv,Calcium 72/Iron/Folic Acid [ Plus Tablet] 1 tab PO DAILY Discharge Medication List Albuterol Inhaler [Ventolin Hfa Inhaler] 1 - 2 puff INHALATION RT-Q6H PRN [History] Acetaminophen [Tylenol] 325 mg PO Q4H PRN 07/20/18 [History] Pnv,Calcium 72/Iron/Folic Acid [ Plus Tablet] 1 tab PO DAILY 07/20/18 [ History] Ibuprofen [Motrin] 600 mg PO Q6HR PRN #30 tab 12/15/18 [Rx] Follow up Appointment(s)/Referral(s): Abdias Mukherjee DO [Primary Care Provider] - 6 Weeks Discharge Disposition: HOME SELF-CARE
[2018-12-15] MEDS: IBUPROFEN 600 MG TAB PO PRN (16:53)
[2018-12-15] MEDS: LACTATED RINGERS 1,000 ML IV SCH ×2 (21:02→21:03)
[2018-12-16 00:24] VITALS: RESP 16
[2018-12-16 00:25] VITALS: TEMP 98.5
[2018-12-16] MEDS: ACETAMINOPHEN TAB 325 MG TAB PO PRN (03:58)
[2018-12-16] MEDS: SENNOSIDES-DOCUSATE SODIUM 1 EACH TAB PO SCH (08:05)
[2018-12-16] MEDS: IBUPROFEN 600 MG TAB PO PRN (08:06)
[2018-12-16 09:13] VITALS: BP 125/74; PULSE 73
--- NOTE | 2018-12-16 12:19 | P.DS ---
Providers Date of admission: 12/14/18 12:08 Expected date of discharge: 12/16/18 Attending physician: Abdias Mukherjee Primary care physician: Abdias Mukherjee [facility] Course: Gabbie is doing well day 2. She is ambulating, voiding and she is tolerating her diet. Earlier today she had mild elevation of blood pressure but is returned normal and she denies any signs or symptoms of preeclampsia or affects of elevated blood pressure. She is requesting pressure for Lexapro. She and I discussed risk of Lexapro and breast-feeding her on known and that there are always potential risks including possibly necrotizing enterocolitis of her . She however did also discuss this with the electrical controls technician and the electrical controls technician felt the Lexapro be fine in the immediate timeframe. Prescription for 10 mg of Lexapro was sent to the pharmacy with a prescription for Motrin for cramping. Breast pump prescription was also provided. Baby does have a fractured right clavicle but seems to be moving the arm well otherwise. Baby will follow up with orthopedics. Assessment post day 2. Plan discharged home follow up with me in 6 weeks. Patient Condition at Discharge: Good Plan - Discharge Summary New Discharge Prescriptions: New RX: Ibuprofen [Motrin] 600 mg PO Q6HR PRN #30 tab PRN Reason: Mild Pain Or Fever >= 100.5 Escitalopram Oxalate [Lexapro] 10 mg PO DAILY #30 tab Ibuprofen [Motrin] 600 mg PO Q6HR PRN #30 tab PRN Reason: Pain No Action RX: Albuterol Inhaler [Ventolin Hfa Inhaler] 1 - 2 puff INHALATION RT-Q6H PRN PRN Reason: Shortness Of Breath Acetaminophen [Tylenol] 325 mg PO Q4H PRN PRN Reason: Pain Pnv,Calcium 72/Iron/Folic Acid [ Plus Tablet] 1 tab PO DAILY Discharge Medication List RX: Albuterol Inhaler [Ventolin Hfa Inhaler] 1 - 2 puff INHALATION RT-Q6H PRN [History] Acetaminophen [Tylenol] 325 mg PO Q4H PRN 07/20/18 [History] Pnv,Calcium 72/Iron/Folic Acid [ Plus Tablet] 1 tab PO DAILY 07/20/18 [ History] RX: Ibuprofen [Motrin] 600 mg PO Q6HR PRN #30 tab 12/15/18 [Rx] Escitalopram Oxalate [Lexapro] 10 mg PO DAILY #30 tab 12/16/18 [Rx] Ibuprofen [Motrin] 600 mg PO Q6HR PRN #30 tab 12/16/18 [Rx] Follow up Appointment(s)/Referral(s): Abdias Mukherjee DO [Primary Care Provider] - 6 Weeks Discharge Disposition: HOME SELF-CARE
== END 2018-12-16 13:04 | disposition home or self-care (01) | DRG 807 ==
LOC: 4FBP 12:08
PROVIDERS: ADMIT Obstetrics & Gynecology; ATTEND Obstetrics & Gynecology
PROC: 10E0XZZ Delivery of Products of Conception, External Approach (ICD-10-PCS; principal; 2018-12-14)
DX: O99.824 Streptococcus B carrier state complicating childbirth (principal); Z37.0 Single live birth; O99.52 Diseases of the respiratory system complicating childbirth; O99.344 Other mental disorders complicating childbirth; J45.909 Unspecified asthma, uncomplicated; F42.9 Obsessive-compulsive disorder, unspecified; F41.9 Anxiety disorder, unspecified; F32.9 Major depressive disorder, single episode, unspecified; O99.284 Endocrine, nutritional and metabolic diseases complicating childbirth; E28.2 Polycystic ovarian syndrome; O99.354 Diseases of the nervous system complicating childbirth; R51 Headache; R03.0 Elevated blood-pressure reading, without diagnosis of hypertension; O99.42 Diseases of the circulatory system complicating childbirth; Z3A.38 38 weeks gestation of pregnancy; Z87.442 Personal history of urinary calculi; Z90.49 Acquired absence of other specified parts of digestive tract; Z90.79 Acquired absence of other genital organ(s); Z88.1 Allergy status to other antibiotic agents; Z88.8 Allergy status to other drugs, medicaments and biological substances; Z82.49 Family history of ischemic heart disease and other diseases of the circulatory system
CPT/HCPCS: 85025; 86850; 86900; 86901; 90715

== ENCOUNTER 2020-07-12 15:23 | Emergency (ER) | payer OTHER ==
[2020-07-12 15:32] VITALS: TEMP 98.7
--- NOTE | 2020-07-12 16:02 | ED ---
Female Urogenital HPI - General Chief complaint: Vaginal Bleeding Stated complaint: Vaginal Bleeding Time Seen by Provider: 07/12/20 15:36 Source: patient Mode of arrival: wheelchair Limitations: no limitations - History of Present Illness Initial comments: Patient is a 30-year-old female with history of PCOS was presenting to emergency prompt chief complaint of vaginal bleeding. Patient states she's been having continuous vaginal bleeding over the last 3 days. Patient reports going through one large pad per hour. Patient reports prior to the onset of vaginal bleeding, she had intermittent spotting. She also reports lower abdominal pain that is radiating around to the right side of her back. Patient does report feeling nauseous today but no vomiting. Denies increased urgency frequency or dysuria. States this was her first menstrual period since she gave in November 2018. 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 She also reports feeling lightheaded but denies any chest pain or shortness of breath. States she does not take any oral is a contraceptive, or intrauterine contraceptive. Patient denies dyspareunia. Denies other vaginal bleeding or foul smell. Denies any vaginal trauma. - Related Data Home Medications Medication Instructions Recorded Confirmed Albuterol Inhaler (Mhu) [Ventolin 1 - 2 puff INHALATION RT-Q6H PRN 09/21/17 12/14/18 Hfa Inhaler (Mhu)] Acetaminophen [Tylenol] 325 mg PO Q4H PRN 07/20/18 12/14/18 Pnv,Calcium 72/Iron/Folic Acid 1 tab PO DAILY 07/20/18 12/14/18 [ Plus Tablet] Previous Rx's Medication Instructions Recorded Ibuprofen [Motrin] 600 mg PO Q6HR PRN #30 tab 12/15/18 Escitalopram Oxalate [Lexapro] 10 mg PO DAILY #30 tab 12/16/18 Ibuprofen [Motrin] 600 mg PO Q6HR PRN #30 tab 12/16/18 Metoclopramide [Reglan] 10 mg PO TID PRN #15 tab 07/12/20 Allergies Allergy/AdvReac Type Severity Reaction Status Date / Time doxycycline AdvReac Rash/Hives Verified 07/12/20 15:32 sumatriptan [From Imitrex] AdvReac Unknown Verified 07/12/20 15:32 Review of Systems ROS Statement: Those systems with pertinent positive or pertinent negative responses have been documented in the HPI. ROS Other: All systems not noted in ROS Statement are negative. Past Medical History Past Medical History: Asthma Additional Past Medical History / Comment(s): KIDNEY STONES. migraine headache. PCOS. heavy menses History of Any Multi-Drug Resistant Organisms: None Reported Past Surgical History: Cholecystectomy Additional Past Surgical History / Comment(s): D AND C and left tube removed due to ectopic tubal Past Anesthesia/Blood Transfusion Reactions: Postoperative Nausea & Vomiting (PONV) Additional Past Anesthesia/Blood Transfusion Reaction / Comment(s): anesthesia reaction: major n/V and becomes agitated and severe headache Past Psychological History: Anxiety, Depression Smoking Status: Former smoker Past Alcohol Use History: None Reported Past Drug Use History: Marijuana - Past Family History father Additional Family Medical History / Comment(s): drug abuse, and of massive heart attack thought to be related to drug overdose mother Additional Family Medical History / Comment(s): bipolar disorder General Exam Limitations: no limitations General appearance: alert, in no apparent distress, obese Head exam: Present: atraumatic, normocephalic, normal inspection Eye exam: Present: normal appearance, PERRL, EOMI Pupils: Present: normal accommodation ENT exam: Present: normal exam, normal oropharynx, mucous membranes moist Neck exam: Present: normal inspection, full ROM. Absent: tenderness Respiratory exam: Present: normal lung sounds bilaterally. Absent: respiratory distress, wheezes, rales Cardiovascular Exam: Present: regular rate, normal rhythm, normal heart sounds GI/Abdominal exam: Present: soft, tenderness (Lower abdominal tenderness.). Absent: distended, guarding, rebound External exam: Present: normal external exam. Absent: erythema, swelling, lesions, lacerations, ecchymosis Speculum exam: Present: normal speculum exam, vaginal bleeding. Absent: erythem a, vaginal discharge, foreign body, tissue, laceration By manual exam: Present: normal by manual exam. Absent: cervical motion tenderness, adnexal tenderness, adnexal mass Extremities exam: Present: normal inspection, full ROM. Absent: tenderness Back exam: Present: normal inspection, full ROM. Absent: tenderness Neurological exam: Present: alert, oriented X3 Psychiatric exam: Present: normal affect, normal mood Skin exam: Present: warm, dry, intact, normal color Course Vital Signs 07/12/20 07/12/2007/12/20 15:29 17:09 18:30 Temperature 98.7 F Pulse Rate 110 H 86 80 Respiratory 18 16 18 Rate Blood Pressure 121/83 106/76 119/87 O2 Sat by Pulse 98 99 99 Oximetry Medical Decision Making - Medical Decision Making patient is 30-year-old female with history of PCO as presenting to the emergency room with a chief complaint of vaginal bleeding. Patient is going through 1 pad per hour. This is her first period since November 2018. On exam there is mild lower abdominal tenderness. On pelvic examination, I was able to clear the vaginal vault with gauze. Some residual blood was noted in the vaginal vault. Minimal vaginal bleeding. Patient was also given symptomatically controlled emergency department. CBC shows no signs of anemia. Coags within normal limits. UA shows moderate blood and red blood cells. No signs of urinary tract infection. Patient is not . Trichomonas negative. Gonorrhea and chlamydia pending. Urine culture pending. Patient advised to follow-up with her warehouse checker . Strict return parameters were thoroughly discussed the patient is resting agreeable. Case discussed physician. - Lab Data Result diagrams: 07/12/20 16:15 07/12/20 16:15 Lab Results 07/12/20 07/12/20 07/12/20 Range/Units 16:15 16:15 16:15 WBC 16.2 H (3.8-10.6) k/uL RBC 4.84 (3.80-5.40) m/uL Hgb 13.8 (11.4-16.0) gm/dL Hct 41.6 (34.0-46.0) % MCV 86.0 (80.0-100.0) fL MCH 28.5 (25.0-35.0) pg MCHC 33.1 (31.0-37.0) g/dL RDW 12.7 (11.5-15.5) % Plt Count 356 (150-450) k/uL Neutrophils % 77 % Lymphocytes % 16 % Monocytes % 4 % Eosinophils % 1 % Basophils % 0 % Neutrophils # 12.5 H (1.3-7.7) k/uL Lymphocytes # 2.6 (1.0-4.8) k/uL Monocytes # 0.7 (0-1.0) k/uL Eosinophils # 0.2 (0-0.7) k/uL Basophils # 0.1 (0-0.2) k/uL PT 10.3 (9.0-12.0) sec INR 1.0 (<1.2) APTT 25.0 (22.0-30.0) sec Sodium (137-145) mmol/L Potassium (3.5-5.1) mmol/L Chloride (98-107) mmol/L Carbon Dioxide (22-30) mmol/L Anion Gap mmol/L BUN (7-17) mg/dL Creatinine (0.52-1.04) mg/dL Est GFR (CKD-EPI)AfAm (>60 ml/min/1.73 sqM) Est GFR (CKD-EPI)NonAf (>60 ml/min/1.73 sqM) Glucose (74-99) mg/dL Calcium (8.4-10.2) mg/dL Total Bilirubin (0.2-1.3) mg/dL AST (14-36) U/L ALT (4-34) U/L Alkaline Phosphatase (38-126) U/L Total Protein (6.3-8.2) g/dL Albumin (3.5-5.0) g/dL Urine Color Urine Appearance (Clear) Urine pH (5.0-8.0) Ur Specific [place] (1.001-1.035) Urine Protein (Negative) Urine Glucose (UA) (Negative) Urine Ketones (Negative) Urine Blood (Negative) Urine Nitrite (Negative) Urine Bilirubin (Negative) Urine Urobilinogen (<2.0) mg/dL Ur Leukocyte Esterase (Negative) Urine RBC (0-5) /hpf Urine WBC (0-5) /hpf Ur Squamous Epith Cells (0-4) /hpf Urine Bacteria (None) /hpf Urine Mucus (None) /hpf Urine HCG, Qual Not Detected (Not Detectd) Trichomonas Ag (Rapid) (Negative) 07/12/20 07/12/20 07/12/20 Range/Units 16:15 16:15 17:08 WBC (3.8-10.6) k/uL RBC (3.80-5.40) m/uL Hgb (11.4-16.0) gm/dL Hct (34.0-46.0) % MCV (80.0-100.0) fL MCH (25.0-35.0) pg MCHC (31.0-37.0) g/dL RDW (11.5-15.5) % Plt Count (150-450) k/uL Neutrophils % % Lymphocytes % % Monocytes % % Eosinophils % % Basophils % % Neutrophils # (1.3-7.7) k/uL Lymphocytes # (1.0-4.8) k/uL Monocytes # (0-1.0) k/uL Eosinophils # (0-0.7) k/uL Basophils # (0-0.2) k/uL PT (9.0-12.0) sec INR (<1.2) APTT (22.0-30.0) sec Sodium 139 (137-145) mmol/L Potassium 4.3 (3.5-5.1) mmol/L Chloride 109 H (98-107) mmol/L Carbon Dioxide 21 L (22-30) mmol/L Anion Gap 9 mmol/L BUN 11 (7-17) mg/dL Creatinine 0.57 (0.52-1.04) mg/dL Est GFR (CKD-EPI)AfAm >90 (>60 ml/min/1.73 sqM) Est GFR (CKD-EPI)NonAf >90 (>60 ml/min/1.73 sqM) Glucose 103 H (74-99) mg/dL Calcium 9.1 (8.4-10.2) mg/dL Total Bilirubin 0.4 (0.2-1.3) mg/dL AST 28 (14-36) U/L ALT 27 (4-34) U/L Alkaline Phosphatase 75 (38-126) U/L Total Protein 7.3 (6.3-8.2) g/dL Albumin 4.3 (3.5-5.0) g/dL Urine Color Yellow Urine Appearance Cloudy H (Clear) Urine pH 5.5 (5.0-8.0) Ur Specific [place] 1.031 (1.001-1.035) Urine Protein 1+ H (Negative) Urine Glucose (UA) Negative (Negative) Urine Ketones Negative (Negative) Urine Blood Large H (Negative) Urine Nitrite Negative (Negative) Urine Bilirubin Negative (Negative) Urine Urobilinogen <2.0 (<2.0) mg/dL Ur Leukocyte Esterase Negative (Negative) Urine RBC >182 H (0-5) /hpf Urine WBC 68 H (0-5) /hpf Ur Squamous Epith Cells 1 (0-4) /hpf Urine Bacteria Rare H (None) /hpf Urine Mucus Few H (None) /hpf Urine HCG, Qual (Not Detectd) Trichomonas Ag (Rapid) Negative (Negative) Disposition Clinical Impression: Vaginal bleeding Disposition: HOME SELF-CARE Condition: Good Instructions (If sedation given, give patient instructions): Dysmenorrhea (ED) Additional Instructions: Follow-up with her warehouse checker. Return to emergency department if symptoms worsen. Prescriptions: Metoclopramide [Reglan] 10 mg PO TID PRN #15 tab PRN Reason: GERD Is patient prescribed a controlled substance at d/c from ED?: No Referrals: Rosana Rebolledo MD [Primary Care Provider] - 1-2 days Time of Disposition: 17:41
[2020-07-12 16:33] LABS: Appearance,Urine Cloudy (Clear); Bacteria,Urine Rare /hpf; Bilirubin,Urine Negative (Negative); Blood,Urine Large (Negative); Color,Urine Yellow; Glucose,Urine (UA) Negative (Negative); Ketones,Urine Negative (Negative); Leukocyte Esterase,Urine Negative (Negative); Mucus,Urine Few /hpf; Nitrite,Urine Negative (Negative); PH, Urine 5.5 (5.0-8.0); Protein,Urine 1+ (Negative); RBC,Urine >182 /hpf (0-5); Specific Gravity,Urine 1.031 (1.001-1.035); Squamous Epithelial Cell,Urine 1 /hpf (0-4); Urobilinogen,Urine <2.0 mg/dL (<2.0); WBC,Urine 68 /hpf (0-5)
[2020-07-12 16:37] LABS: Basophils # (A) 0.1 k/uL (0-0.2); Basophils % (A) 0 %; Eosinophils # (A) 0.2 k/uL (0-0.7); Eosinophils % (A) 1 %; HCT 41.6 % (34.0-46.0); HGB 13.8 gm/dL (11.4-16.0); Lymphocytes # (A) 2.6 k/uL (1.0-4.8); Lymphocytes % (A) 16 %; MCH 28.5 pg (25.0-35.0); MCHC 33.1 g/dL (31.0-37.0); Mean Platelet Volume 7.5; Monocytes # (A) 0.7 k/uL (0-1.0); Monocytes % (A) 4 %; Neutrophils # (A) 12.5 k/uL (1.3-7.7); Neutrophils % (A) 77 %; Platelet Count 356 k/uL (150-450); RBC 4.84 m/uL (3.80-5.40); RDW 12.7 % (11.5-15.5); WBC 16.2 k/uL (3.8-10.6)
[2020-07-12 16:38] LABS: ALT 27 U/L (4-34); AST 28 U/L (14-36); African American GFR (CKD) >90 (>60 ml/min/1.73 sqM); Albumin 4.3 g/dL (3.5-5.0); Alkaline Phosphatase 75 U/L (38-126); Anion Gap 9 mmol/L; Blood Urea Nitrogen 11 mg/dL (7-17); Calcium 9.1 mg/dL (8.4-10.2); Carbon Dioxide 21 mmol/L (22-30); Chloride 109 mmol/L (98-107); Glucose 103 mg/dL (74-99); Non-African American GFR(CKD) >90 (>60 ml/min/1.73 sqM); Potassium 4.3 mmol/L (3.5-5.1); Prothrombin Time 10.3 sec (9.0-12.0); Sodium 139 mmol/L (137-145); Total Bilirubin 0.4 mg/dL (0.2-1.3); Total Protein 7.3 g/dL (6.3-8.2)
[2020-07-12] MEDS ORDERED: METOCLOPRAMIDE 5 MG/ML 2 ML VIAL IVP STA (17:48)
[2020-07-12] MEDS ORDERED: diphenhydrAMINE 50 MG/ML 1 ML VIAL IVP STA (17:49)
[2020-07-12 18:32] VITALS: BP 119/87; PULSE 80; RESP 18
[2020-07-14 15:54] LABS: C. trachomatis,PCR Negative (Neg,Equiv); Chlamydia trachomatis Source Vagina; N. gonorrhoeae,PCR Negative (Neg,Equiv); Neisseria Source Vagina
== END 2020-07-12 18:30 | disposition home or self-care (01) ==
LOC: EC 15:23
DX: N93.9 Abnormal uterine and vaginal bleeding, unspecified (principal); R10.30 Lower abdominal pain, unspecified; R11.0 Nausea; R42 Dizziness and giddiness; J45.909 Unspecified asthma, uncomplicated; Z87.442 Personal history of urinary calculi; Z87.42 Personal history of other diseases of the female genital tract; Z90.49 Acquired absence of other specified parts of digestive tract; Z87.891 Personal history of nicotine dependence; Z79.899 Other long term (current) drug therapy; Z88.1 Allergy status to other antibiotic agents; Z88.8 Allergy status to other drugs, medicaments and biological substances
CPT/HCPCS: 36415; 80053; 85025; 85610; 85730; 81001; 81025; 87808; 87491; 87591; 87086; 99284; 96374; 96375; J1200; J2765